=== PATIENT | male | born 1965 | race Caucasian/White ===

== ENCOUNTER 2016-06-16 13:19 | Emergency (ER) | payer MEDICARE ==
[~2016-06-16] VITALS: Ht 172.7 cm; Wt 66.8 kg
[~2016-06-16 13:19] MED LIST: ASPI325T PO; ZANT150T2 PO
[2016-06-16 13:29] VITALS: BP 103/76; PULSE 88; RESP 16; TEMP 98; O2SAT 100
[2016-06-16] MEDS ORDERED: SODIUM CHLOR 0.9% 1000 ML INJ 1,000 ML IV SCH (13:49)
[2016-06-16] MEDS ORDERED: GABA600T PO (13:51)
[2016-06-16] MEDS ORDERED: ESCI20TA PO (13:51)
[2016-06-16] MEDS ORDERED: QUET1TAB9 PO (13:51)
[2016-06-16] MEDS ORDERED: BUSP30TA PO (13:51)
[2016-06-16] MEDS ORDERED: TRAZ150T75 PO (13:51)
[2016-06-16] MEDS ORDERED: ONDANSETRON HCL 4 MG/2 ML VIAL IVP ONE (14:00)
[2016-06-16] MEDS ORDERED: SODIUM CHLORIDE 0.9% FLUSH 10 ML FLUSH IV FLUSH PRN (14:00)
[2016-06-16 14:11] VITALS: O2SAT 97
[2016-06-16 14:11] LABS: AUTOMATED NEUTROPHIL # 5.4 TH/MM3 (1.8-7.7); BASOPHIL # 0.1 TH/MM3 (0-0.2); BASOPHIL % 1.4 % (0.0-2.0); EOSINOPHIL # 0.1 TH/MM3 (0-0.4); EOSINOPHIL % 1.2 % (0.0-4.0); HEMO FLAGS DIFF FINAL; LYMPH % 26.2 % (9.0-44.0); LYMPHOCYTE # 2.2 TH/MM3 (1.0-4.8); MEAN CELL VOLUME 93.2 FL (80.0-100.0); MEAN CORPUSCULAR HEMOGLOBIN 30.1 PG (27.0-34.0); MEAN CORPUSCULAR HGB CONC 32.3 % (32.0-36.0); MONO % 5.8 % (0.0-8.0); NEUT % 65.4 % (16.0-70.0); PLATELET COUNT 318 TH/MM3 (150-450); RED BLOOD COUNT 5.15 MIL/MM3 (4.50-5.90); RED CELL DISTRIBUTION WIDTH 13.3 % (11.6-17.2); WHITE BLOOD COUNT 8.3 TH/MM3 (4.0-11.0)
[2016-06-16] MEDS ORDERED: DIATRIZOATE MEGLUM/DIATRIZOATE SOD 9 ML CUP ONE (14:13)
[2016-06-16 14:24] LABS: CHLORIDE 104 MEQ/L (98-107); POTASSIUM 4.9 MEQ/L (3.5-5.1); SODIUM (NA) 138 MEQ/L (136-145)
[2016-06-16 14:28] LABS: ANION GAP 7 MEQ/L (5-15); BICARBONATE 27.1 MEQ/L (21.0-32.0); BLOOD UREA NITROGEN 11 MG/DL (7-18)
[2016-06-16 14:30] LABS: ALT (GPT) 30 U/L (12-78); AST (GOT) 38 U/L (15-37)
[2016-06-16 14:31] LABS: GLOMERULAR FILTRATION RATE 84 ML/MIN (>89)
[2016-06-16 14:32] LABS: APTT (PATIENT) 29.1 SEC (24.3-30.1); PROTHROMBIN TIME - PATIENT 10.6 SEC (9.8-11.6); TOTAL BILIRUBIN ADULT 0.4 MG/DL (0.2-1.0)
[2016-06-16 14:33] LABS: ALKALINE PHOSPHATASE 79 U/L (45-117)
[2016-06-16 14:36] LABS: INDIRECT BILIRUBIN 0.3 MG/DL (0.0-0.8)
[2016-06-16 14:47] LABS: BLOOD, URINE NEG (NEG); GLUCOSE,URINE NEG (NEG); KETONE, URINE NEG (NEG); NITRITE,URINE NEG (NEG); PH, URINE 6.5 (5.0-8.5)
[2016-06-16 14:53] LABS: METHOD OF COLLECTION CLEAN CATCH; RBC, URINE 0-3 /hpf (0-3); URINE COLOR YELLOW (YELLW/STRAW)
[2016-06-16 14:54] LABS: COMMENT (UR) CULT NOT INDICATED; CULTURE IF INDICATED CULT NOT INDICATED; SQUAMOUS EPITHELIAL CELL URINE 0-5 /hpf (0-5)
[2016-06-16] MEDS ORDERED: IOHEXOL 350 MG/ML 10 ML VIAL (for RAD DIAG) IV ONE (16:46)
[2016-06-16 17:13] VITALS: BP 134/86; PULSE 53; RESP 18; O2SAT 100
--- NOTE | 2016-06-16 17:22 | RADHPO ---
EXAM DATE/TIME: 06/16/2016 15:51 [facility] COMPARISON: No previous studies available for comparison. INDICATIONS : Constipation and increasing abdominal pain. IV CONTRAST: 90 cc Omnipaque 350 (iohexol) IV ORAL CONTRAST: Prescribed oral contrast ingested. RADIATION DOSE: 8.78 CTDIvol (mGy) MEDICAL HISTORY : None SURGICAL HISTORY : Inguinal hernia repair. ENCOUNTER: Initial ACUITY: 1 month PAIN SCALE: 7/10 LOCATION: Bilateral abdomen TECHNIQUE: Volumetric scanning of the abdomen and pelvis was performed. Using automated exposure control and ad justment of the mA and/or kV according to patient size, radiation dose was kept as low as reasonably achievable to obtain optimal diagnostic quality images. FINDINGS: There are small bilateral pleural effusions. Mild fatty liver with probable tiny cysts present. There is a small cyst posterior aspect of the sple en. Adrenals, kidneys and pancreas demonstrate no acute findings. No calcified gallstones. There is no bowel obstruction. No free air or free fluid. The bladder is distended and there is a left-sided posterior bladder diverticulum measuring about 5.8 x 2.6 cm. The prostate gland is enlarged. CONCLUSION: 1. Enlarged prostate with distended bladder a left-sided bladder diverticulum and similar to December 2014. 2. Mild fatty liver. 3. Small bilateral pleural effusions. Small pericardial effusion. Cooper Fox MD on June 16, 2016 at 17:16 Board Certified Radiologist. This report was verified electronically.
[2016-06-16] MEDS ORDERED: TAMS5CAP PO (19:06)
--- NOTE | 2016-06-16 19:06 | PD ---
HPI Chief Complaint: GI Complaint Time Seen by Provider: 13:44 Travel History International Travel<30 days: No Contact w/Intl Traveler<30days: No Traveled to known affect area: No History of Present Illness HPI Patient is a 50-year-old male who comes in complaining of abdominal pain. He says he has been constipated for the past 3 weeks. He has tried several over- the-counter laxatives without much relief. He says he last moved his bowels 3 days ago, but it was a small bowel movement. He's had some nausea, but no vomiting. He denies fever or chills. He says he has not been very hungry lately. PFSH Past Medical History Autoimmune Disease: No Blood Disorders: No Bipolar Disorder: Yes Anxiety: Yes Depression: Yes Heart Rhythm Problems: No High Cholesterol: No Chemotherapy: No Chest Pain: No Congestive Heart Failure: No Cerebrovascular Accident: Yes (2000) Diminished Hearing: Yes (both ears especially left) Endocrine: No Gastrointestinal Disorders: Yes GERD: Yes Genitourinary: Yes (NEW HESITENCY) Headaches: Yes Hypertension: No Immune Disorder: No Implanted Vascular Access Dvce: No Musculoskeletal: Yes (OLD BILATERAL ROTATOR CUFF INJURY) Neurologic: Yes Psychiatric: Yes (Inpatient, outpatient, psychotropic medications, and diagnosis) Reproductive: No Respiratory: Yes Immunizations Current: Yes Pancreatitis: Yes Radiation Therapy: No Seizures: Yes Past Surgical History Abdominal Surgery: Yes (RIGHT HERNIA REPAIR AUGUST 2013) Body Medical Devices: MESH IN GROIN FROM SURGERY Pacemaker: No Other Surgery: Yes (RIGHT GROIN HERNIA REPAIR) Social History Alcohol Use: Yes (RUM EVERY DAY ) Tobacco Use: Yes (1 PPD.) Substance Use: Yes (ALCOHOL) Allergies-Medications (Allergen,Severity, Reaction): Coded Allergies: Coconut (Verified Allergy, Severe, ANAPHALAXIS, 06/16/16) Lortab (Verified Adverse Reaction, Mild, Nausea/Vomiting, 06/16/16) Reported Meds & Prescriptions Reported Meds & Active Scripts Active Reported Quetiapine (Quetiapine Fumarate) 200 Mg Tab 200 Mg PO HS Escitalopram (Escitalopram Oxalate) 20 Mg Tab 30 Mg PO HS Buspirone (Buspirone HCl) 30 Mg Tab 20 Mg PO TID Gabapentin 600 Mg Tab 600 Mg PO QID Trazodone (Trazodone HCl) 150 Mg Tab 150 Mg PO HS Review of Systems Except as stated in HPI: all other systems reviewed are Neg General / Constitutional: No: Fever, Chills HENT: No: Headaches, Lightheadedness Cardiovascular: No: Chest Pain or Discomfort Respiratory: No: Shortness of Breath Gastrointestinal: Positive: Nausea, Abdominal Pain, Constipation, No: Vomiting , Diarrhea Genitourinary: Positive: Decreased Urinary Output Skin: No Rash, No Change in Pigmentation Neurologic: No: Weakness, Dizziness Physical Exam Narrative GENERAL: Awake and alert, in no acute distress. SKIN: Focused skin assessment warm/dry. HEAD: Atraumatic. Normocephalic. EYES: Pupils equal and round. No scleral icterus. ENT: Mucous membranes pink and moist. NECK: Trachea midline. No JVD. CARDIOVASCULAR: Regular rate and rhythm. No murmur appreciated. RESPIRATORY: No accessory muscle use. Clear to auscultation. Breath sounds equal bilaterally. GASTROINTESTINAL: Diffusely tender to palpation, the worst over the suprapubic area. Distention over the bladder. No rebound or guarding. MUSCULOSKELETAL: No obvious deformities. No clubbing. No cyanosis. No edema. NEUROLOGICAL: Awake and alert. No obvious cranial nerve deficits. Motor grossly within normal limits. Normal speech. PSYCHIATRIC: Appropriate mood and affect; insight and judgment normal. Data Data Last Documented VS Vital Signs Date Time Temp Pulse Resp B/P Pulse Ox O2 Delivery O2 Flow Rate FiO2 06/16/16 17:13 53 18 134/86 100 06/16/16 14:11 Room Air 06/16/16 13:29 98.0 Orders Basic Metabolic Panel (Bmp) (06/16/16 13:49) Complete Blood Count With Diff (06/16/16 13:49) Lipase (06/16/16 13:49) Lactic Acid (06/16/16 13:49) Prothrombin Time / Inr (Pt) (06/16/16 13:49) Act Partial Throm Time (Ptt) (06/16/16 13:49) Urinalysis - C+S If Indicated (06/16/16 13:49) Ua Includes Microscopic (06/16/16 13:49) Ct Abd/Pel W Iv Contrast(Rout) (06/16/16 13:49) Iv Access Insert/Monitor (06/16/16 13:49) Ecg Monitoring (06/16/16 13:49) Oximetry (06/16/16 13:49) Ondansetron Inj (Zofran Inj) (06/16/16 14:00) Sodium Chlor 0.9% 1000 Ml Inj (Ns 1000 M (06/16/16 13:49) Sodium Chloride 0.9% Flush (Ns Flush) (06/16/16 14:00) Hepatic Functional Panel (06/16/16 13:49) Oral Contrast - Adult (06/16/16 14:04) Diatrizoate Liq ( Gastrojanice Liq) (06/16/16 14:13) Iohexol 350 Inj (Omnipaque 350 Inj) (06/16/16 16:46) Urinary Catheter Insert/Apply (06/16/16 17:45) Labs Laboratory Tests Test 06/16/16 06/16/16 14:02 14:36 White Blood Count 8.3 TH/MM3 Red Blood Count 5.15 MIL/MM3 Hemoglobin 15.5 GM/DL Hematocrit 48.0 % Mean Corpuscular Volume 93.2 FL Mean Corpuscular Hemoglobin 30.1 PG Mean Corpuscular Hemoglobin 32.3 % Concent Red Cell Distribution Width 13.3 % Platelet Count 318 TH/MM3 Mean Platelet Volume 7.6 FL Neutrophils (%) (Auto) 65.4 % Lymphocytes (%) (Auto) 26.2 % Monocytes (%) (Auto) 5.8 % Eosinophils (%) (Auto) 1.2 % Basophils (%) (Auto) 1.4 % Neutrophils # (Auto) 5.4 TH/MM3 Lymphocytes # (Auto) 2.2 TH/MM3 Monocytes # (Auto) 0.5 TH/MM3 Eosinophils # (Auto) 0.1 TH/MM3 Basophils # (Auto) 0.1 TH/MM3 CBC Comment DIFF FINAL Differential Comment Prothrombin Time 10.6 SEC Prothromb Time International 1.0 RATIO Ratio Activated Partial 29.1 SEC Thromboplast Time Sodium Level 138 MEQ/L Potassium Level 4.9 MEQ/L Chloride Level 104 MEQ/L Carbon Dioxide Level 27.1 MEQ/L Anion Gap 7 MEQ/L Blood Urea Nitrogen 11 MG/DL Creatinine 0.95 MG/DL Estimat Glomerular Filtration 84 ML/MIN Rate Random Glucose 93 MG/DL Lactic Acid Level 1.5 mmol/L Calcium Level 9.2 MG/DL Total Bilirubin 0.4 MG/DL Direct Bilirubin LESS THAN 0.1 MG/DL Indirect Bilirubin 0.3 MG/DL Aspartate Amino Transf 38 U/L (AST/SGOT) Alanine Aminotransferase 30 U/L (ALT/SGPT) Alkaline Phosphatase 79 U/L Total Protein 7.3 GM/DL Albumin 3.5 GM/DL Lipase 117 U/L Urine Collection Type CLEAN CATCH Urine Color YELLOW Urine Turbidity CLEAR Urine pH 6.5 Urine Specific [place] 1.010 Urine Protein NEG mg/dL Urine Glucose (UA) NEG mg/dL Urine Ketones NEG mg/dL Urine Occult Blood NEG Urine Nitrite NEG Urine Bilirubin NEG Urine Leukocyte Esterase NEG Urine RBC 0-3 /hpf Urine Squamous Epithelial 0-5 /hpf Cells Microscopic Urinalysis Comment CULT NOT INDICATED Urine Collection Time 14:36 MDM Medical Decision Making Medical Screen Exam Complete: Yes Emergency Medical Condition: Yes Medical Record Reviewed: Yes Differential Diagnosis Obstruction versus colitis versus urinary retention versus diverticulitis Narrative Course Patient is a 50-year-old male who comes in complaining of abdominal pain and constipation. Exam shows diffuse tenderness, worse over the suprapubic area with bladder distention. IV established, labs sent. Labs show no acute abnormalities. Creatinine is within normal limits. CT abdomen and pelvis performed shows enlarged bladder as well as an enlarged prostate. No acute issues with the colon. Patient given Zofran for nausea. Xiao catheter inserted with a liter of urine output. Patient reports feeling better after this. We'll discharge with Xiao in place and prescription for Flomax. Patient advised follow-up with urology. Advised to return to the ED as needed for any worsening symptoms. Diagnosis Primary Impression: Urinary retention Referrals: Aman Farr MD call for appointment Patient Instructions: Benign Prostatic Hypertrophy (ED), General Instructions, Urinary Retention in Men (ED) Additional Instructions: Follow up with urology, Dr. Farr: [address] [address] [phone]. Take the Flomax for your enlarged prostate. Return to the ED as needed for any worsening symptoms. Scripts Tamsulosin (Flomax)0.4 Mg Cap0.4 Mg PO HS #30 CAP Ref 0 Prov:Bushra Riley MD 06/16/16 Disposition: 01 DISCHARGE HOME Condition: Stable Bushra Riley MD June 16, 2016 19:06
[2016-06-16 19:25] VITALS: BP 131/79; TEMP 97.4
[2016-06-21] MEDS ORDERED: LEXA20TA PO (08:27)
[2016-06-21] MEDS ORDERED: ZANT150T2 PO (08:27)
[2016-07-16] MEDS ORDERED: TRAZ50TA12 PO (15:02)
== END 2016-06-16 19:31 | disposition home or self-care (01) ==
LOC: PHED 13:19
DX: R33.9 Retention of urine, unspecified (principal); R11.0 Nausea; F17.210 Nicotine dependence, cigarettes, uncomplicated
CPT/HCPCS: 51703; 74177; 80048; 80076; 81001; 83605; 83690; 85025; 85610; 85730; 96361; 96374; 99284; J2405; J7030; Q9963; Q9967

== ENCOUNTER → 2016-07-24 | Day surgery (SDC) | payer MEDICARE ==
[~2016-07-24] VITALS: Ht 172.7 cm; Wt 69.7 kg
[~2016-07-24] MED LIST changes: +*morphine SULFATE 8 MG/ML PERIprocedure ONLY ONE; +AMPICILLIN 1 GM/NS 100 ML IV SCH; -ASPI325T PO; +BELLADONNA ALKALOIDS/OPIUM 60 MG SUPP RECTAL ONE; +BUSP30TA PO; +CHLORHEXIDINE GLUCONATE 2 % 1 PACK (2 CLOTHS) TOPICAL PRN; +CIPR-9 PO; +DO NOT ADM ANY ANTICOAGULANT DRUGS PRN; +FAMOTIDINE 20 MG/2 ML VIAL ONE; +GABA600T PO; +GENTAMICIN INJ 240 MG in SODIUM CHLORIDE 0.9% INJ 100 ML IV SCH; +HYDROmorphone HCL PF 2 MG/ML VIAL IV PUSH PRN; +INSULIN HUMAN REGULAR 1,000 UNITS/10 ML VIAL SQ PRN; +LACTATED RINGER'S 1000 ML IV PRN; +LAMO25TA PO; +LEXA20TA PO; +METOPROLOL TARTRATE 25 MG TAB PO PRN; +MIDAZOLAM HCL 2 MG/2 ML VIAL ONE; +NEOSTIGMINE METHYLSULFATE 10 MG/10 ML VIAL IV PUSH ONE; +NORC5TAB PO; +ONDANSETRON HCL 4 MG/2 ML VIAL IV PUSH ONE; +ONDANSETRON HCL 4 MG/2 ML VIAL IV PUSH PRN; +POVIDONE IODINE 5% (ANTISEPSIS KIT) 4 APPLICATIONS EACH NARE PRN; +PROPOFOL 200 MG/20 ML AMP IV ONE; +QUET1TAB10 PO; +QUET1TAB8 PO; +QUET1TAB9 PO; +SODIUM CHLORID 0.9% 500 ML IV PRN; +TAMS5CAP PO; +TRAM50TA PO; +TRAZ50TA12 PO; +fentaNYL CITRATE 250 MCG/5 ML AMP ONE; +traMADol HCL 50 MG TAB PO PRN
[2016-07-24 08:09] VITALS: BP 107/73; PULSE 89; RESP 18; TEMP 97.7; O2SAT 99
[2016-07-24 08:25] LABS: AUTOMATED NEUTROPHIL # 7.2 TH/MM3 (1.8-7.7); BASOPHIL % 0.3 % (0.0-2.0); EOSINOPHIL # 0.2 TH/MM3 (0-0.4); EOSINOPHIL % 1.9 % (0.0-4.0); HEMATOCRIT 41.1 % (39.0-51.0); HEMO FLAGS DIFF FINAL; LYMPH % 21.9 % (9.0-44.0); LYMPHOCYTE # 2.3 TH/MM3 (1.0-4.8); MEAN CELL VOLUME 91.7 FL (80.0-100.0); MEAN CORPUSCULAR HEMOGLOBIN 31.7 PG (27.0-34.0); MEAN CORPUSCULAR HGB CONC 34.6 % (32.0-36.0); MONO % 8.7 % (0.0-8.0); NEUT % 67.2 % (16.0-70.0); PLATELET COUNT 348 TH/MM3 (150-450); RED BLOOD COUNT 4.49 MIL/MM3 (4.50-5.90); RED CELL DISTRIBUTION WIDTH 13.8 % (11.6-17.2); WHITE BLOOD COUNT 10.7 TH/MM3 (4.0-11.0)
[2016-07-24 08:34] LABS: APTT (PATIENT) 29.6 SEC (24.3-30.1); INTERNATIONAL NORMALIZED RATIO 0.9 RATIO; PROTHROMBIN TIME - PATIENT 10.4 SEC (9.8-11.6)
[2016-07-24 08:42] LABS: BICARBONATE 28.8 MEQ/L (21.0-32.0); POTASSIUM 3.3 MEQ/L (3.5-5.1)
--- NOTE | 2016-07-24 10:01 | PD.OP ---
Operative Report Date of Surgery: Jul 24, 2016 Preoperative Diagnosis: BPH with obstruction; urinary retention Postoperative Diagnosis: Same Procedure: Cystoscopy with transurethral incision of the bladder neck followed by transurethral resection of the prostate. Anesthesia: GETA Surgeon: Charli Rollins Calciner Feeder(s): None Resident Surgeon: None Operation and Findings: 50 year-old male presents with history of BPH with obstruction and urinary retention with indwelling Xiao catheter. Decision made to bring the patient to the operating room undergo transurethral resection of the prostate. Risk and benefits were discussed preoperatively and the patient was willing to proceed. Patient is brought to operative room identify myself as Brendon Elbert. His placement dorsal lithotomy position, prepped and draped in usual sterile fashion, received preprocedure antibiotics and general endotracheal tube anesthesia was administered. 24 [place] obturator sheath with the [employer] resectoscope was passed into the bladder without difficulty. Hernández cystoscopy demonstrated some catheter cystitis but no bladder tumors were identified. The prostate was visualized and there appeared to be a short prostatic urethra with minimal coaptation of the prosthetic lobes. There was a high riding bladder neck. Initially using the hot knife, a bladder neck incision was made. Once completed then the loupe resectoscope was then used to perform the transurethral resection of the prostate. Only a small amount of chips were retrieved. Hemostasis was obtained. Using the electric evacuator the small chips were removed. A 24 [place] two-way Xiao catheter was inserted to completion of the procedure and he tolerated the procedure well. He was awoken and transferred to occur in stable condition. Charli Rollins DO Jul 24, 2016 10:01
--- NOTE | 2016-07-24 10:30 | EKG ---
Date Performed: 07/24/2016 Time Performed: 08:05:02 PTAGE: 50 years EKG: Sinus rhythm BORDERLINE RIGHT AXIS DEVIATION BORDERLINE ECG NO SIGNIFICANT CHANGE FROM PRIOR ELECTROCARDIOGRAM. PREVIOUS TRACING : 07/14/2015 17.07 DOCTOR: Jordan Lau Interpretating Date/Time 07/24/2016 10:28:20
[2016-07-24 11:58] VITALS: BP 105/75; PULSE 87; RESP 18; TEMP 97.7; O2SAT 95
== END | disposition home or self-care (01) ==
LOC: HSDC 07:31
PROVIDERS: ATTEND Urology
DX: N40.1 Benign prostatic hyperplasia with lower urinary tract symptoms (principal); R33.9 Retention of urine, unspecified; R56.9 Unspecified convulsions; F17.200 Nicotine dependence, unspecified, uncomplicated; Z01.810 Encounter for preprocedural cardiovascular examination; Z01.818 Encounter for other preprocedural examination
CPT/HCPCS: 00914; 52601; 80048; 85025; 85610; 85730; 88305; 93005; J0290; J1170; J1580; J2250; J2270; J2405; J2710; J3010

== ENCOUNTER 2016-07-28 17:22 | Emergency (ER) | payer MEDICARE ==
[~2016-07-28] VITALS: Ht 175.3 cm; Wt 72.0 kg
[~2016-07-28 17:22] MED LIST changes: -*morphine SULFATE 8 MG/ML PERIprocedure ONLY ONE; -AMPICILLIN 1 GM/NS 100 ML IV SCH; -BELLADONNA ALKALOIDS/OPIUM 60 MG SUPP RECTAL ONE; -CHLORHEXIDINE GLUCONATE 2 % 1 PACK (2 CLOTHS) TOPICAL PRN; -CIPR-9 PO; -DO NOT ADM ANY ANTICOAGULANT DRUGS PRN; -FAMOTIDINE 20 MG/2 ML VIAL ONE; -GENTAMICIN INJ 240 MG in SODIUM CHLORIDE 0.9% INJ 100 ML IV SCH; -HYDROmorphone HCL PF 2 MG/ML VIAL IV PUSH PRN; -INSULIN HUMAN REGULAR 1,000 UNITS/10 ML VIAL SQ PRN; -LACTATED RINGER'S 1000 ML IV PRN; -LAMO25TA PO; -LEXA20TA PO; -METOPROLOL TARTRATE 25 MG TAB PO PRN; -MIDAZOLAM HCL 2 MG/2 ML VIAL ONE; -NEOSTIGMINE METHYLSULFATE 10 MG/10 ML VIAL IV PUSH ONE; -NORC5TAB PO; -ONDANSETRON HCL 4 MG/2 ML VIAL IV PUSH ONE; -ONDANSETRON HCL 4 MG/2 ML VIAL IV PUSH PRN; -POVIDONE IODINE 5% (ANTISEPSIS KIT) 4 APPLICATIONS EACH NARE PRN; -PROPOFOL 200 MG/20 ML AMP IV ONE; -QUET1TAB10 PO; -QUET1TAB8 PO; -SODIUM CHLORID 0.9% 500 ML IV PRN; -TRAM50TA PO; -fentaNYL CITRATE 250 MCG/5 ML AMP ONE; -traMADol HCL 50 MG TAB PO PRN
[2016-07-28 17:28] VITALS: BP 121/84; PULSE 96; RESP 16; TEMP 98.5; O2SAT 98
[2016-07-28] MEDS ORDERED: MORPHINE SULFATE 4 MG/ML INJ IV PUSH ONE (17:45)
[2016-07-28] MEDS ORDERED: ONDANSETRON HCL 4 MG/2 ML VIAL IV PUSH ONE (17:45)
[2016-07-28] MEDS ORDERED: SODIUM CHLOR 0.9% 1000 ML INJ 1,000 ML IV ONE (17:45)
[2016-07-28] MEDS ORDERED: TRAM50TA PO (17:50)
[2016-07-28] MEDS ORDERED: LAMO25TA PO (17:50)
[2016-07-28] MEDS ORDERED: QUET1TAB10 PO (17:50)
[2016-07-28] MEDS ORDERED: QUET1TAB8 PO (17:50)
[2016-07-28] MEDS ORDERED: CIPR-9 PO (18:01)
[2016-07-28] MEDS ORDERED: NORC5TAB PO (18:01)
--- NOTE | 2016-07-28 18:02 | PD ---
HPI Chief Complaint: Abdominal Pain Time Seen by Provider: 17:31 Travel History International Travel<30 days: No Contact w/Intl Traveler<30days: No Traveled to known affect area: No History of Present Illness HPI The patient is a 50-year-old male who presents emergency department via EMS for lower abdominal discomfort. The patient recently underwent cystoscopy by his urologist, Dr. Jj Rollins, for possible large prostate. The procedure was performed on July 24, 2016 and he was supposed to follow-up on July 27, 2016 for urine child, however, patient was unable to make his appointment. He now complains of spasms and discomfort in the lower pelvic area. He does note occasional discomfort with the passage of urine, but continues to make clear yellow urine. He denies any current hematuria. He denies any fever, chills, sweats, nausea, or vomiting. Symptoms are moderate, exacerbated after recent cystoscopy, and there are no current alleviating factors. PFSH Past Medical History Autoimmune Disease: No Blood Disorders: No Bipolar Disorder: Yes Anxiety: Yes Depression: Yes Heart Rhythm Problems: No High Cholesterol: No Chemotherapy: No Chest Pain: No Congestive Heart Failure: No Cerebrovascular Accident: Yes (2000) Diminished Hearing: Yes (both ears especially left) Endocrine: No Gastrointestinal Disorders: Yes GERD: Yes Genitourinary: Yes (NEW HESITENCY) Headaches: Yes Hypertension: No Immune Disorder: No Implanted Vascular Access Dvce: No Musculoskeletal: Yes (OLD BILATERAL ROTATOR CUFF INJURY) Neurologic: Yes Psychiatric: Yes (Inpatient, outpatient, psychotropic medications, and diagnosis) Reproductive: No Respiratory: Yes Immunizations Current: Yes Pancreatitis: Yes Radiation Therapy: No Seizures: Yes Past Surgical History Abdominal Surgery: Yes (RIGHT HERNIA REPAIR AUGUST 2013) Body Medical Devices: MESH IN GROIN FROM SURGERY Pacemaker: No Prostatectomy: Yes Other Surgery: Yes (RIGHT GROIN HERNIA REPAIR) Social History Alcohol Use: No (quit ) Tobacco Use: Yes (1 PPD.) Substance Use: No (ALCOHOL) Allergies-Medications (Allergen,Severity, Reaction): Coded Allergies: Coconut (Verified Allergy, Severe, ANAPHALAXIS, 07/28/16) Lortab (Verified Adverse Reaction, Mild, Nausea/Vomiting, 07/28/16) *MDRO Multi-Drug Resistant Organism (Verified Adverse Reaction, Unknown, MRSA, 07/28/16) MRSA (arm wound) - 07/21/2005 Reported Meds & Prescriptions Reported Meds & Active Scripts Active Lebec (Hydrocodone-Acetaminophen) 5-325 mg Tab 1 Tab PO Q6H PRN Cipro (Ciprofloxacin HCl) 500 Mg Tab 500 Mg PO BID 3 Days Reported Lamotrigine 25 Mg Tab 25 Mg PO DAILY Tramadol (Tramadol HCl) 50 Mg Tab 50 Mg PO Q6H PRN Quetiapine (Quetiapine Fumarate) 100 Mg Tab 100 Mg PO DAILY Quetiapine (Quetiapine Fumarate) 300 Mg Tab 300 Mg PO HS Trazodone (Trazodone HCl) 50 Mg Tab 50 Mg PO HS patient take 3 tablets at night. Zantac (Ranitidine HCl) 150 Mg Tab 150 Mg PO DAILY Buspirone (Buspirone HCl) 30 Mg Tab 20 Mg PO TID Gabapentin 600 Mg Tab 600 Mg PO QID Review of Systems Except as stated in HPI: all other systems reviewed are Neg General / Constitutional: No: Fever Cardiovascular: No: Chest Pain or Discomfort Respiratory: No: Shortness of Breath Gastrointestinal: No: Nausea, Vomiting, Abdominal Pain Genitourinary: Positive: Pelvic Pain, Other (as noted in the history of present illness) Skin: No Rash Physical Exam Narrative GENERAL: Awake, alert, pleasant 50-year-old male who appears his stated age and is in no acute respiratory distress. SKIN: Focused skin assessment warm/dry. HEAD: Atraumatic. Normocephalic. EYES: Pupils equal and round. No scleral icterus. No injection or drainage. ENT: No nasal bleeding or discharge. Mucous membranes pink and moist. NECK: Trachea midline. No JVD. CARDIOVASCULAR: Regular rate and rhythm. No murmur appreciated. RESPIRATORY: No accessory muscle use. Clear to auscultation. Breath sounds equal bilaterally. GASTROINTESTINAL: Abdomen soft, minimal suprapubic tenderness, no rebound tenderness. No obvious distention of the suprapubic region. Genitourinary: Circumcised phallus with Xiao catheter in place. Xiao catheter is attached leg bag with clear yellow urine. No tenderness over the testicles. MUSCULOSKELETAL: No obvious deformities. No clubbing. No cyanosis. No edema. NEUROLOGICAL: Awake and alert. No obvious cranial nerve deficits. Motor grossly within normal limits. Normal speech. PSYCHIATRIC: Appropriate mood and affect; insight and judgment normal. Data Data Last Documented VS Vital Signs Date Time Temp Pulse Resp B/P Pulse Ox O2 Delivery O2 Flow Rate FiO2 07/28/16 17:55 18 07/28/16 17:28 98.5 96 121/84 98 Orders Urinalysis - C+S If Indicated (07/28/16 17:41) Comprehensive Metabolic Panel (07/28/16 17:41) Complete Blood Count With Diff (07/28/16 17:41) Morphine Inj (Morphine Inj) (07/28/16 17:45) Ondansetron Inj (Zofran Inj) (07/28/16 17:45) Sodium Chlor 0.9% 1000 Ml Inj (Ns 1000 M (07/28/16 17:45) Urine Culture (07/28/16 17:54) Labs Laboratory Tests Test 07/28/16 07/28/16 14:50 17:54 White Blood Count 8.5 TH/MM3 Red Blood Count 4.24 MIL/MM3 Hemoglobin 12.9 GM/DL Hematocrit 39.6 % Mean Corpuscular Volume 93.4 FL Mean Corpuscular Hemoglobin 30.4 PG Mean Corpuscular Hemoglobin 32.6 % Concent Red Cell Distribution Width 14.0 % Platelet Count 332 TH/MM3 Mean Platelet Volume 7.3 FL Neutrophils (%) (Auto) 60.9 % Lymphocytes (%) (Auto) 26.4 % Monocytes (%) (Auto) 9.8 % Eosinophils (%) (Auto) 2.4 % Basophils (%) (Auto) 0.5 % Neutrophils # (Auto) 5.2 TH/MM3 Lymphocytes # (Auto) 2.2 TH/MM3 Monocytes # (Auto) 0.8 TH/MM3 Eosinophils # (Auto) 0.2 TH/MM3 Basophils # (Auto) 0.0 TH/MM3 CBC Comment DIFF FINAL Differential Comment Sodium Level 142 MEQ/L Potassium Level 3.4 MEQ/L Chloride Level 110 MEQ/L Carbon Dioxide Level 25.0 MEQ/L Anion Gap 7 MEQ/L Blood Urea Nitrogen 6 MG/DL Creatinine 0.83 MG/DL Estimat Glomerular Filtration 98 ML/MIN Rate Random Glucose 91 MG/DL Calcium Level 7.7 MG/DL Total Bilirubin 0.2 MG/DL Aspartate Amino Transf 13 U/L (AST/SGOT) Alanine Aminotransferase 14 U/L (ALT/SGPT) Alkaline Phosphatase 77 U/L Total Protein 5.7 GM/DL Albumin 2.6 GM/DL Urine Color YELLOW Urine Turbidity CLEAR Urine pH 7.5 Urine Specific [place] 1.010 Urine Protein 30 mg/dL Urine Glucose (UA) NEG mg/dL Urine Ketones NEG mg/dL Urine Occult Blood MOD Urine Nitrite NEG Urine Bilirubin NEG Urine Urobilinogen LESS THAN 2.0 MG/DL Urine Leukocyte Esterase SMALL Urine RBC 38 /hpf Urine WBC 10 /hpf Microscopic Urinalysis Comment CATH-CULTURE IND MDM Medical Decision Making Medical Screen Exam Complete: Yes Emergency Medical Condition: Yes Medical Record Reviewed: Yes Interpretation(s) Laboratory Tests Test 07/28/16 07/28/16 14:50 17:54 White Blood Count 8.5 TH/MM3 Red Blood Count 4.24 MIL/MM3 Hemoglobin 12.9 GM/DL Hematocrit 39.6 % Mean Corpuscular Volume 93.4 FL Mean Corpuscular Hemoglobin 30.4 PG Mean Corpuscular Hemoglobin 32.6 % Concent Red Cell Distribution Width 14.0 % Platelet Count 332 TH/MM3 Mean Platelet Volume 7.3 FL Neutrophils (%) (Auto) 60.9 % Lymphocytes (%) (Auto) 26.4 % Monocytes (%) (Auto) 9.8 % Eosinophils (%) (Auto) 2.4 % Basophils (%) (Auto) 0.5 % Neutrophils # (Auto) 5.2 TH/MM3 Lymphocytes # (Auto) 2.2 TH/MM3 Monocytes # (Auto) 0.8 TH/MM3 Eosinophils # (Auto) 0.2 TH/MM3 Basophils # (Auto) 0.0 TH/MM3 CBC Comment DIFF FINAL Differential Comment Sodium Level 142 MEQ/L Potassium Level 3.4 MEQ/L Chloride Level 110 MEQ/L Carbon Dioxide Level 25.0 MEQ/L Anion Gap 7 MEQ/L Blood Urea Nitrogen 6 MG/DL Creatinine 0.83 MG/DL Estimat Glomerular Filtration 98 ML/MIN Rate Random Glucose 91 MG/DL Calcium Level 7.7 MG/DL Total Bilirubin 0.2 MG/DL Aspartate Amino Transf 13 U/L (AST/SGOT) Alanine Aminotransferase 14 U/L (ALT/SGPT) Alkaline Phosphatase 77 U/L Total Protein 5.7 GM/DL Albumin 2.6 GM/DL Urine Color YELLOW Urine Turbidity CLEAR Urine pH 7.5 Urine Specific [place] 1.010 Urine Protein 30 mg/dL Urine Glucose (UA) NEG mg/dL Urine Ketones NEG mg/dL Urine Occult Blood MOD Urine Nitrite NEG Urine Bilirubin NEG Urine Urobilinogen LESS THAN 2.0 MG/DL Urine Leukocyte Esterase SMALL Urine RBC 38 /hpf Urine WBC 10 /hpf Microscopic Urinalysis Comment CATH-CULTURE IND Differential Diagnosis Differential diagnosis includes bladder spasms, outlet obstruction, UTI, postoperative complication, acute renal failure, obstructive uropathy. Narrative Course IV was established, labs are drawn and sent, and the patient was placed on cardiac telemetry monitoring and continuous pulse oximetry monitoring. Bedside ultrasound was performed which reveals that the Xiao catheter is in place, there is no obvious distention of the bladder. I discussed the patient with Dr. Rollins, the patient's urologist, who recommended the patient follow-up on Saturday on an outpatient basis if laboratory evaluation/UA are negative for a voiding trial. He also recommends antibiotics for a few days and pain medication for the discomfort, but advises to avoid Ditropan. Labs reveal RBCs and WBCs, otherwise unremarkable. The patient we treated with Cipro and Lebec. He is advised to follow-up Saturday with Dr. Rollins. Diagnosis Primary Impression: Painful bladder spasm Additional Impression: UTI (urinary tract infection) Qualified Code: T83.511A - Urinary tract infection associated with indwelling urethral catheter, initial encounter Patient Instructions: General Instructions Additional Instructions: Follow-up with Dr. Rollins on Saturday. Medications as directed. Return if symptoms worsen or progress. Med/Other Pt SpecificInfo: Prescription(s) given Scripts Hydrocodone-Acetaminophen ([place])5-325 mg Tab1 Tab PO Q6H PRN (PAIN) #15 TAB Ref 0 Prov:Jarad Casarez MD 07/28/16 Ciprofloxacin (Cipro)500 Mg Thw913 Mg PO BID 3 Days Ref 0 Prov:Jarad Casarez MD 07/28/16 Disposition: 01 DISCHARGE HOME Condition: Stable Jarad Casarez MD Jul 28, 2016 18:01
[2016-07-28 18:15] LABS: AUTOMATED NEUTROPHIL # 5.2 TH/MM3 (1.8-7.7); BASOPHIL % 0.5 % (0.0-2.0); EOSINOPHIL # 0.2 TH/MM3 (0-0.4); EOSINOPHIL % 2.4 % (0.0-4.0); HEMATOCRIT 39.6 % (39.0-51.0); HEMO FLAGS DIFF FINAL; LYMPH % 26.4 % (9.0-44.0); LYMPHOCYTE # 2.2 TH/MM3 (1.0-4.8); MEAN CELL VOLUME 93.4 FL (80.0-100.0); MEAN CORPUSCULAR HEMOGLOBIN 30.4 PG (27.0-34.0); MEAN CORPUSCULAR HGB CONC 32.6 % (32.0-36.0); MONO % 9.8 % (0.0-8.0); NEUT % 60.9 % (16.0-70.0); PLATELET COUNT 332 TH/MM3 (150-450); RED BLOOD COUNT 4.24 MIL/MM3 (4.50-5.90); WHITE BLOOD COUNT 8.5 TH/MM3 (4.0-11.0)
[2016-07-28 18:16] LABS: BLOOD, URINE MOD (NEG); COMMENT (UR) CATH-CULTURE IND; CULTURE IF INDICATED CATH CULTURE IND; GLUCOSE,URINE NEG (NEG); KETONE, URINE NEG (NEG); NITRITE,URINE NEG (NEG); PH, URINE 7.5 (5.0-8.5); URINE COLOR YELLOW (YELLW/STRAW)
[2016-07-28 18:40] LABS: ALT (GPT) 14 U/L (12-78); ANION GAP 7 MEQ/L (5-15); AST (GOT) 13 U/L (15-37); BLOOD UREA NITROGEN 6 MG/DL (7-18); CHLORIDE 110 MEQ/L (98-107); GLOMERULAR FILTRATION RATE 98 ML/MIN (>89); POTASSIUM 3.4 MEQ/L (3.5-5.1); SODIUM (NA) 142 MEQ/L (136-145)
[2016-07-28 18:42] LABS: ALKALINE PHOSPHATASE 77 U/L (45-117); TOTAL BILIRUBIN ADULT 0.2 MG/DL (0.2-1.0)
== END 2016-07-28 19:08 | disposition home or self-care (01) ==
LOC: NEPE 17:22
DX: N32.89 Other specified disorders of bladder (principal); F17.210 Nicotine dependence, cigarettes, uncomplicated; F31.9 Bipolar disorder, unspecified; N39.0 Urinary tract infection, site not specified
CPT/HCPCS: 80053; 81001; 85025; 87086; 96374; 96375; 99284; J2270; J2405; J7030

== ENCOUNTER 2017-02-25 07:37 | Emergency (ER) | payer MEDICARE ==
[~2017-02-25] VITALS: Ht 175.3 cm; Wt 78.0 kg
[~2017-02-25 07:37] MED LIST changes: +CIPR-9 PO; +LAMO25TA PO; +NORC5TAB PO; +QUET1TAB10 PO; +QUET1TAB8 PO; -QUET1TAB9 PO; -TAMS5CAP PO; +TRAM50TA PO
[2017-02-25 07:41] VITALS: BP 135/58; PULSE 93; RESP 18; TEMP 98; O2SAT 100
[2017-02-25] MEDS ORDERED: TRAZ100T10 PO (07:51)
[2017-02-25 07:52] VITALS: BP 135/58; PULSE 93; RESP 18; TEMP 98; O2SAT 100
[2017-02-25] MEDS ORDERED: RESP: ALBUTEROL 2.5 MG/IPRATROPIUM 0.5 MG NEB (SCH) NEB ONE ×2 (08:30→10:45)
[2017-02-25] MEDS ORDERED: ONDANSETRON HCL 4 MG/2 ML VIAL IV PUSH ONE (08:30)
[2017-02-25] MEDS ORDERED: KETOROLAC TROMETHAMINE 30 MG/ML (IVP) VIAL IV PUSH ONE (08:30)
[2017-02-25] MEDS ORDERED: SODIUM CHLOR 0.9% 1000 ML INJ 1,000 ML IV ONE (08:30)
[2017-02-25 08:41] LABS: AUTOMATED NEUTROPHIL # 7.2 TH/MM3 (1.8-7.7); BASOPHIL # 0.4 TH/MM3 (0-0.2); BASOPHIL % 3.8 % (0.0-2.0); EOSINOPHIL # 0.1 TH/MM3 (0-0.4); EOSINOPHIL % 1.4 % (0.0-4.0); HEMATOCRIT 39.1 % (39.0-51.0); HEMOGLOBIN 12.8 GM/DL (13.0-17.0); LYMPH % 19.8 % (9.0-44.0); LYMPHOCYTE # 2.1 TH/MM3 (1.0-4.8); MEAN CELL VOLUME 90.7 FL (80.0-100.0); MEAN CORPUSCULAR HEMOGLOBIN 29.7 PG (27.0-34.0); MEAN CORPUSCULAR HGB CONC 32.8 % (32.0-36.0); MEAN PLATELET VOLUME 7.2 FL (7.0-11.0); MONOCYTE # 0.7 TH/MM3 (0-0.9); PLATELET COUNT 295 TH/MM3 (150-450); RED BLOOD COUNT 4.31 MIL/MM3 (4.50-5.90); WHITE BLOOD COUNT 10.5 TH/MM3 (4.0-11.0)
[2017-02-25 09:03] LABS: CHLORIDE 104 MEQ/L (98-107); SODIUM (NA) 139 MEQ/L (136-145)
[2017-02-25 09:07] LABS: ALBUMIN 2.7 GM/DL (3.4-5.0); BICARBONATE 30.1 MEQ/L (21.0-32.0); BLOOD UREA NITROGEN 13 MG/DL (7-18); CALCIUM 8.4 MG/DL (8.5-10.1); GLUCOSE,RANDOM 99 MG/DL (74-106)
[2017-02-25 09:10] LABS: ALT (GPT) 13 U/L (12-78); AST (GOT) 9 U/L (15-37); GLOMERULAR FILTRATION RATE 79 ML/MIN (>89)
[2017-02-25 09:12] LABS: TOTAL BILIRUBIN ADULT 0.3 MG/DL (0.2-1.0); TOTAL PROTEIN 6.5 GM/DL (6.4-8.2)
[2017-02-25 09:13] LABS: ALKALINE PHOSPHATASE 96 U/L (45-117)
--- NOTE | 2017-02-25 09:14 | RADRPT ---
EXAM DATE/TIME: 02/25/2017 08:36 [facility] COMPARISON: CT THORAX W/O CONTRAST, July 14, 2015, 17:24. CHEST PA & LAT, February 10, 2016, 7:46. INDICATIONS : Cough MEDICAL HISTORY : Chronic obstructive pulmonary disease. SURGICAL HISTORY : None. ENCOUNTER: Initial ACUITY: 1 week PAIN SCORE: 0/10 LOCATION: Bilateral chest FINDINGS: The cardiac and mediastinal contours are within normal limits. The exam demonstrates a questionable 1 .3 cm nodule in the lateral margin of the right midlung field. The lungs are otherwise clear. The visualized bony structures are grossly intact. There are known, old rib fractures on the right. CONCLUSION: Questionable 1.3 cm pulmonary nodule on the right. CT imaging of the thorax would be of benefit for f urther assessment. This was not seen on previous examination. Terry Wright MD on February 25, 2017 at 9:09 Board Certified Radiologist. This report was verified electronically.
[2017-02-25 09:15] LABS: TROPONIN I LESS THAN 0.02 NG/ML (0.02-0.05)
--- NOTE | 2017-02-25 09:43 | PD ---
HPI Chief Complaint: Cold / Flu Symptoms Time Seen by Provider: 07:56 Travel History International Travel<30 days: No Contact w/Intl Traveler<30days: No Traveled to known affect area: No History of Present Illness HPI Patient is a 51 year old male who comes in complaining of cough, cold, bodyaches. He says he has had flu like symptoms for the past 6 days. He has been taking Nyquil to control his symptoms without much relief. He says he had a fever 3 days ago. He last took any medication a few hours ago. He says he has pain all over and around his diaphragm from coughing. He has some mild SOB. He is a smoker. He denies nausea or vomiting. He complains of bilateral ear pain. Nothing seems to make his symptoms better or worse. PFSH Past Medical History Hx Anticoagulant Therapy: No Autoimmune Disease: No Blood Disorders: No Bipolar Disorder: Yes Anxiety: Yes Depression: Yes Heart Rhythm Problems: No High Cholesterol: No Chemotherapy: No Chest Pain: No Congestive Heart Failure: No Cerebrovascular Accident: Yes (2000) Diabetes: No Diminished Hearing: Yes (both ears especially left) Endocrine: No Gastrointestinal Disorders: Yes GERD: Yes Genitourinary: Yes (NEW HESITENCY) Headaches: Yes Hypertension: No Immune Disorder: No Implanted Vascular Access Dvce: No Musculoskeletal: Yes (OLD BILATERAL ROTATOR CUFF INJURY) Neurologic: Yes Psychiatric: Yes (Inpatient, outpatient, psychotropic medications, and diagnosis) Reproductive: No Respiratory: Yes Immunizations Current: Yes Pancreatitis: Yes Radiation Therapy: No Seizures: Yes Tetanus Vaccination: < 5 Years Past Surgical History Abdominal Surgery: Yes (RIGHT HERNIA REPAIR AUGUST 2013) Body Medical Devices: MESH IN GROIN FROM SURGERY Pacemaker: No Other Surgery: Yes (RIGHT GROIN HERNIA REPAIR) Social History Alcohol Use: No (quit ) Tobacco Use: Yes (1 PPD.) Substance Use: No (ALCOHOL) Allergies-Medications (Allergen,Severity, Reaction): Coded Allergies: coconut (Unverified Allergy, Severe, ANAPHALAXIS, 02/25/17) acetaminophen (Unverified Adverse Reaction, Mild, Nausea/Vomiting, 02/25/17 ) hydrocodone (Unverified Adverse Reaction, Mild, Nausea/Vomiting, 02/25/17) *MDRO Multi-Drug Resistant Organism (Verified Adverse Reaction, Unknown, MRSA, 02/25/17) MRSA (arm wound) - 07/21/2005 Reported Meds & Prescriptions Reported Meds & Active Scripts Active Reported Trazodone (Trazodone HCl) 100 Mg Tablet 100 Mg PO HS Lamotrigine 25 Mg Tab 25 Mg PO DAILY Quetiapine (Quetiapine Fumarate) 100 Mg Tab 100 Mg PO DAILY Quetiapine (Quetiapine Fumarate) 300 Mg Tab 300 Mg PO HS Zantac (Ranitidine HCl) 150 Mg Tab 150 Mg PO DAILY Buspirone (Buspirone HCl) 30 Mg Tab 20 Mg PO TID Gabapentin 600 Mg Tab 600 Mg PO QID Review of Systems Except as stated in HPI: all other systems reviewed are Neg General / Constitutional: Positive: Fever HENT: Positive: Sore Throat, Congestion, No: Headaches Respiratory: Positive: Cough, Shortness of Breath Gastrointestinal: No: Nausea, Vomiting Musculoskeletal: Positive: Myalgias Skin: No Rash, No Change in Pigmentation Neurologic: No: Weakness, Dizziness Physical Exam Narrative GENERAL: Awake and alert, in no acute distress. SKIN: Focused skin assessment warm/dry. No wounds or signs of infection. HEAD: Atraumatic. Normocephalic. EYES: Pupils equal and round. No scleral icterus. ENT: Mucous membranes pink and moist. No tonsillar swelling or exudates. NECK: Trachea midline. No JVD. CARDIOVASCULAR: Regular rate and rhythm. No murmur appreciated. RESPIRATORY: No accessory muscle use. decreased breath sounds. Breath sounds equal bilaterally. GASTROINTESTINAL: Abdomen soft, non-tender, nondistended. MUSCULOSKELETAL: No obvious deformities. No clubbing. No cyanosis. No edema. NEUROLOGICAL: Awake and alert. No obvious cranial nerve deficits. Motor grossly within normal limits. Normal speech. PSYCHIATRIC: Appropriate mood and affect; insight and judgment normal. Data Data Last Documented VS Vital Signs Date Time Temp Pulse Resp B/P (MAP) Pulse Ox O2 Delivery O2 Flow Rate FiO2 02/25/17 10:54 85 18 147/82 (103) 98 Room Air 02/25/17 07:52 98.0 Orders Orders Iv Access Insert/Monitor (02/25/17 08:21) Complete Blood Count With Diff (02/25/17 08:21) Comprehensive Metabolic Panel (02/25/17 08:21) Electrocardiogram (02/25/17 ) Troponin I (02/25/17 08:21) Chest, Pa & Lat (02/25/17 ) Influenzae A/B Antigen (02/25/17 08:21) Sodium Chlor 0.9% 1000 Ml Inj (Ns 1000 M (02/25/17 08:30) Ketorolac Inj (Toradol Inj) (02/25/17 08:30) Ondansetron Inj (Zofran Inj) (02/25/17 08:30) Albuterol-Ipratropium Neb (Duoneb Neb) (02/25/17 08:30) Ct Thorax/ Chest W Iv Contrast (02/25/17 ) Iohexol 350 Inj (Omnipaque 350 Inj) (02/25/17 09:54) Ceftriaxone Inj (Rocephin Inj) (02/25/17 10:45) Azithromycin Inj (Zithromax Inj) (02/25/17 10:45) Albuterol-Ipratropium Neb (Duoneb Neb) (02/25/17 10:45) Prednisone (Deltasone) (02/25/17 10:45) Labs Laboratory Tests Test 02/25/17 08:30 White Blood Count 10.5 TH/MM3 Red Blood Count 4.31 MIL/MM3 Hemoglobin 12.8 GM/DL Hematocrit 39.1 % Mean Corpuscular Volume 90.7 FL Mean Corpuscular Hemoglobin 29.7 PG Mean Corpuscular Hemoglobin Concent 32.8 % Red Cell Distribution Width 14.0 % Platelet Count 295 TH/MM3 Mean Platelet Volume 7.2 FL Neutrophils (%) (Auto) 68.0 % Lymphocytes (%) (Auto) 19.8 % Monocytes (%) (Auto) 7.0 % Eosinophils (%) (Auto) 1.4 % Basophils (%) (Auto) 3.8 % Neutrophils # (Auto) 7.2 TH/MM3 Lymphocytes # (Auto) 2.1 TH/MM3 Monocytes # (Auto) 0.7 TH/MM3 Eosinophils # (Auto) 0.1 TH/MM3 Basophils # (Auto) 0.4 TH/MM3 CBC Comment DIFF FINAL Differential Comment Blood Urea Nitrogen 13 MG/DL Creatinine 1.00 MG/DL Random Glucose 99 MG/DL Total Protein 6.5 GM/DL Albumin 2.7 GM/DL Calcium Level 8.4 MG/DL Alkaline Phosphatase 96 U/L Aspartate Amino Transf (AST/SGOT) 9 U/L Alanine Aminotransferase (ALT/SGPT) 13 U/L Total Bilirubin 0.3 MG/DL Sodium Level 139 MEQ/L Potassium Level 3.9 MEQ/L Chloride Level 104 MEQ/L Carbon Dioxide Level 30.1 MEQ/L Anion Gap 5 MEQ/L Estimat Glomerular Filtration Rate 79 ML/MIN Troponin I LESS THAN 0.02 NG/ML MDM Medical Decision Making Medical Screen Exam Complete: Yes Emergency Medical Condition: Yes Medical Record Reviewed: Yes Interpretation(s) ECG shows NSR at 77, no ST elevation or depression Differential Diagnosis Pneumonia versus COPD exacerbation versus influenza versus URI Narrative Course Patient is a 51-year-old male who comes in complaining of body aches, fever, cough. Exam shows decreased breath sounds both lungs. IV established, labs sent. Labs show no acute abnormalities. Influenza test is negative. Chest x- ray concerning for a 1.3 cm nodule. CAT scan was performed that shows patchy airspace disease. Patient was given a DuoNeb, IV fluids, Tylenol. He reports feeling better. Last 24 hours Impressions Chest X-Ray 02/25/17 0000 Signed Impressions: Service Date/Time: Saturday, February 25, 2017 08:36 - CONCLUSION: Questionable 1.3 cm pulmonary nodule on the right. CT imaging of the thorax would be of benefit for further assessment. This was not seen on previous examination. Terry Wright MD Chest CT 02/25/17 0000 Signed Impressions: Service Date/Time: Saturday, February 25, 2017 09:46 - CONCLUSION: There are dispersed areas of patchy airspace disease in the right lung primarily upper lobe and posterior lower lobes. Minimal area in the left apex additionally appreciated. Small bilateral pleural effusions layering posteriorly. Macario Garzon MD Patient given a dose of Rocephin and azithromycin. Given a dose of prednisone. He'll be discharged with prescriptions for azithromycin, albuterol, prednisone. He is advised follow-up with a primary care doctor. Advised to return any time for any worsening symptoms. Advised to quit smoking. Diagnosis Primary Impression: Pneumonia Qualified Codes: J18.9 - Pneumonia, unspecified organism Referrals: [facility] call for appointment Patient Instructions: Bacterial Pneumonia (ED), General Instructions Additional Instructions: Take all of your antibiotic. Drink plenty of fluids. Start the prednisone tomorrow as she had a dose or any today. Use albuterol as needed for shortness of breath. Follow-up with a primary care doctor. Return to the ED as needed for any worsening symptoms. Scripts Albuterol 8.5 GM Inh (Proair Hfa 8.5 GM Inh) 90 Mcg/Act Aer 2 PUFF INH Q4-6H Y for SHORTNESS OF BREATH, #1 INHALER 0 Refills 108 mcg/actuation Prov: Bushra Riley MD 02/25/17 Prednisone (Prednisone) 50 Mg Tab 50 MG PO DAILY for 4 Days, #4 TAB 0 Refills Prov: Bushra Riley MD 02/25/17 Azithromycin (Zithromax Z-Hakeem) 250 Mg Dspk 250 MG PO DIRECTED for Infection, #1 DSPK 0 Refills 500 MG (2 tabs) day 1, then 1 tab days 2-5. Prov: Bushra Riley MD 02/25/17 Disposition: 01 DISCHARGE HOME Condition: Stable Bushra Riley MD Feb 25, 2017 09:43
[2017-02-25] MEDS ORDERED: IOHEXOL 350 MG/ML 10 ML VIAL (for RAD DIAG) IVCONTRAST ONE (09:54)
--- NOTE | 2017-02-25 10:07 | RADRPT ---
EXAM DATE/TIME: 02/25/2017 09:46 [facility] COMPARISON: CHEST PA & LAT, February 25, 2017, 8:36. INDICATIONS : Abnormal chest xray. Cough. IV CONTRAST: 65 cc Omnipaque 350 (iohexol) IV RADIATION DOSE: 10.07 CTDIvol (mGy) MEDICAL HISTORY : Chronic obstructive pulmonary disease. SURGICAL HISTORY : None. ENCOUNTER: Initial ACUITY: 1 week PAIN SCALE: 0/10 LOCATION: chest TECHNIQUE: Volumetric scanning of the chest was performed. Using automated exposure control and adjustment of the mA and/or kV according to patient size, radiation dose was kept as low as reasonab ly achievable to obtain optimal diagnostic quality images. DICOM format image data is available lennox ctronically for review and comparison. Follow-up recommendations for detected pulmonary nodules are based at a minimum on nodule size and pa tient risk factors according to Fleischner Society Guidelines. FINDINGS: LUNGS: There are areas of dispersed patchy opacity airspace disease in the right lung primarily u pper lobe and all segments as well as in the right lower lobe posteriorly. Bilateral pleural thickeni ng is appreciated and minimal area of airspace disease in the left apex. The density seen on today's chest x-ray represents a rounded area of consolidation parenchymal infiltrate PLEURA: Bilateral posterior mild pleural thickening probably representing small effusions. MEDIASTINUM: The heart and great vessels demonstrate no acute abnormality. There is no mediastin al or hilar lymphadenopathy. AXILLAE: Within normal limits. No lymphadenopathy. SKELETAL: Within normal limits for patient age. MISCELLANEOUS: The visualized upper abdominal organs demonstrate no acute abnormality. CONCLUSION: There are dispersed areas of patchy airspace disease in the right lung primarily uppe r lobe and posterior lower lobes. Minimal area in the left apex additionally appreciated. Small bilat eral pleural effusions layering posteriorly. Macario Garzon MD on February 25, 2017 at 9:58 Board Certified Radiologist. This report was verified electronically.
[2017-02-25] MEDS ORDERED: cefTRIAXone INJ 1,000 MG in SODIUM CHLORIDE 0.9% INJ 100 ML IV ONE (10:45)
[2017-02-25] MEDS ORDERED: AZITHROMYCIN INJ 500 MG in SODIUM CHLOR 0.9% 250 ML INJ 250 ML IV ONE (10:45)
[2017-02-25] MEDS ORDERED: predniSONE 50 MG TAB PO ONE (10:45)
[2017-02-25 10:54] VITALS: BP 147/82; PULSE 85; RESP 18; O2SAT 98
[2017-02-25] MEDS ORDERED: ZITHTAB PO (11:14)
[2017-02-25] MEDS ORDERED: PRED50 PO (11:14)
[2017-02-25] MEDS ORDERED: ALBUAER3 INH (11:14)
--- NOTE | 2017-02-25 15:26 | EKG ---
Date Performed: 02/25/2017 Time Performed: 08:47:43 PTAGE: 51 years EKG: Sinus rhythm Since previous tracing, no significant change noted NORMAL ECG PREVIOUS TRACING : 07/24/2016 08.05 DOCTOR: Javi Fernandez Interpretating Date/Time 02/25/2017 15:26:03
== END 2017-02-25 12:44 | disposition home or self-care (01) ==
LOC: PHED 07:37
DX: J18.9 Pneumonia, unspecified organism (principal); J44.0 Chronic obstructive pulmonary disease with (acute) lower respiratory infection; F31.9 Bipolar disorder, unspecified; K21.9 Gastro-esophageal reflux disease without esophagitis; F17.210 Nicotine dependence, cigarettes, uncomplicated; Z86.73 Personal history of transient ischemic attack (TIA), and cerebral infarction without residual deficits; Z79.899 Other long term (current) drug therapy
CPT/HCPCS: 71046; 71260; 80053; 84484; 85025; 87804; 93005; 94640; 94664; 96361; 96365; 96368; 96375; 99285; J0456; J0696; J1885; J2405; J7030; J7050; J7512; Q9967

== ENCOUNTER 2017-03-10 11:01 | Emergency (ER) | payer MEDICARE ==
[~2017-03-10] VITALS: Ht 172.7 cm; Wt 76.8 kg
[~2017-03-10 11:01] MED LIST changes: +ALBUAER3 INH; -CIPR-9 PO; -NORC5TAB PO; +PRED50 PO; -TRAM50TA PO; +TRAZ100T10 PO; -TRAZ50TA12 PO; +ZITHTAB PO
[2017-03-10 11:10] VITALS: BP 122/65; PULSE 100; RESP 16; TEMP 98.9; O2SAT 92
[2017-03-10 11:33] VITALS: BP 100/71; PULSE 96; RESP 18; O2SAT 97
--- NOTE | 2017-03-10 11:33 | PD ---
HPI Chief Complaint: Respiratory Symptoms Time Seen by Provider: 11:33 Travel History International Travel<30 days: No Contact w/Intl Traveler<30days: No Traveled to known affect area: No History of Present Illness HPI 51-year-old male came to the emergency room with history of cough and not feeling well and vomiting black color emesis 2 last night. Patient says that he was diagnosed with pneumonia about a week ago. He took antibiotic and has finished. But he hasn't really felt 100% better. Patient is a smoker and has continued to smoke through the whole illness. And then yesterday he started having some abdominal discomfort and vomited twice and they both were black in color. He shouldn't used to be an alcoholic but has been recovering for past 1 year. He says he used to get pancreatitis but has not been diagnosed with cirrhosis or varices. He did not have any blood in his stool. Vital signs are stable except for his oxygen saturation which was 91% in triage. PFSH Past Medical History Narrative Medical List of his past medical, surgical, social and family history is reviewed from the nursing note. Hx Anticoagulant Therapy: No Autoimmune Disease: No Blood Disorders: No Bipolar Disorder: Yes Anxiety: Yes Depression: Yes Heart Rhythm Problems: No High Cholesterol: No Chemotherapy: No Chest Pain: No Congestive Heart Failure: No Cerebrovascular Accident: Yes (2000) Diabetes: No Diminished Hearing: Yes (both ears especially left) Endocrine: No Gastrointestinal Disorders: Yes GERD: Yes Genitourinary: Yes (NEW HESITENCY) Headaches: Yes Hypertension: No Immune Disorder: No Implanted Vascular Access Dvce: No Musculoskeletal: Yes (OLD BILATERAL ROTATOR CUFF INJURY) Neurologic: Yes Psychiatric: Yes (Inpatient, outpatient, psychotropic medications, and diagnosis) Reproductive: No Respiratory: Yes Immunizations Current: Yes Pancreatitis: Yes Radiation Therapy: No Seizures: Yes Past Surgical History Abdominal Surgery: Yes (RIGHT HERNIA REPAIR AUGUST 2013) Body Medical Devices: MESH IN GROIN FROM SURGERY Pacemaker: No Prostatectomy: Yes (REMOVED SCAR TISSUE) Other Surgery: Yes (RIGHT GROIN HERNIA REPAIR) Social History Alcohol Use: No (quit 2016 H/O HEAVY ETOH USE) Tobacco Use: Yes (1 PPD.) Substance Use: No Allergies-Medications (Allergen,Severity, Reaction): Coded Allergies: coconut (Unverified Allergy, Severe, ANAPHALAXIS, 03/10/17) acetaminophen (Unverified Adverse Reaction, Mild, Nausea/Vomiting, 03/10/17 ) hydrocodone (Unverified Adverse Reaction, Mild, Nausea/Vomiting, 03/10/17) *MDRO Multi-Drug Resistant Organism (Verified Adverse Reaction, Unknown, MRSA, 03/10/17) MRSA (arm wound) - 07/21/2005 Comments List of his allergies reviewed from the nursing note. Reported Meds & Prescriptions Reported Meds & Active Scripts Active Ventolin Hfa 18 GM Inh (Albuterol Sulfate) 90 Mcg/Act Aer 2 Puff INH Q4-6H PRN Protonix (Pantoprazole Sodium) 40 Mg Tab 40 Mg PO DAILY Proair Hfa 8.5 GM Inh (Albuterol Sulfate) 90 Mcg/Act Aer 2 Puff INH Q4-6H PRN 108 mcg/actuation Prednisone 50 Mg Tab 50 Mg PO DAILY 4 Days Reported Trazodone (Trazodone HCl) 100 Mg Tablet 100 Mg PO HS Lamotrigine 25 Mg Tab 25 Mg PO DAILY Quetiapine (Quetiapine Fumarate) 100 Mg Tab 100 Mg PO DAILY Quetiapine (Quetiapine Fumarate) 300 Mg Tab 300 Mg PO HS Zantac (Ranitidine HCl) 150 Mg Tab 150 Mg PO DAILY Buspirone (Buspirone HCl) 30 Mg Tab 20 Mg PO TID Gabapentin 600 Mg Tab 600 Mg PO QID Narrative Medication List of his home medications reviewed from the nursing note. Review of Systems Except as stated in HPI: all other systems reviewed are Neg Respiratory: Positive: Cough Gastrointestinal: Positive: Nausea, Vomiting, Abdominal Pain, Hematemesis Physical Exam Narrative GENERAL: Awake, alert, moderate distress SKIN: Focused skin assessment warm/dry. HEAD: Atraumatic. Normocephalic. EYES: Pupils equal and round. No scleral icterus. No injection or drainage. ENT: No nasal bleeding or discharge. Mucous membranes pink and moist. NECK: Trachea midline. No JVD. CARDIOVASCULAR: Regular rate and rhythm. No murmur appreciated. RESPIRATORY: No accessory muscle use. End expiratory wheeze GASTROINTESTINAL: Abdomen soft, non-tender, nondistended. Hepatic and splenic margins not palpable. MUSCULOSKELETAL: No obvious deformities. No clubbing. No cyanosis. No edema. NEUROLOGICAL: Awake and alert. No obvious cranial nerve deficits. Motor grossly within normal limits. Normal speech. PSYCHIATRIC: Appropriate mood and affect; insight and judgment normal. Data Data Last Documented VS Vital Signs Date Time Temp Pulse Resp B/P (MAP) Pulse Ox O2 Delivery O2 Flow Rate FiO2 03/10/17 13:28 99 18 124/67 (86) 98 03/10/17 12:01 Room Air 03/10/17 11:10 98.9 Orders Orders Complete Blood Count With Diff (03/10/17 11:43) Comprehensive Metabolic Panel (03/10/17 11:43) Prothrombin Time / Inr (Pt) (03/10/17 11:43) Iv Access Insert/Monitor (03/10/17 11:43) Ecg Monitoring (03/10/17 11:43) Oximetry (03/10/17 11:43) Oxygen Administration (03/10/17 11:43) Chest, Single Ap (03/10/17 11:43) Sodium Chloride 0.9% Flush (Ns Flush) (03/10/17 11:45) Albuterol-Ipratropium Neb (Duoneb Neb) (03/10/17 11:45) Lipase (03/10/17 11:43) Ct Abd/Pel W Iv Contrast(Rout) (03/10/17 ) Pantoprazole Inj (Protonix Inj) (03/10/17 11:45) Sodium Chlor 0.9% 1000 Ml Inj (Ns 1000 M (03/10/17 11:45) Iohexol 350 Inj (Omnipaque 350 Inj) (03/10/17 12:53) Ed Discharge Order (03/10/17 13:16) Labs Laboratory Tests Test 03/10/17 12:05 White Blood Count 13.5 TH/MM3 Red Blood Count 4.23 MIL/MM3 Hemoglobin 12.8 GM/DL Hematocrit 38.7 % Mean Corpuscular Volume 91.6 FL Mean Corpuscular Hemoglobin 30.1 PG Mean Corpuscular Hemoglobin Concent 32.9 % Red Cell Distribution Width 14.9 % Platelet Count 405 TH/MM3 Mean Platelet Volume 6.6 FL Neutrophils (%) (Auto) 77.6 % Lymphocytes (%) (Auto) 14.3 % Monocytes (%) (Auto) 6.0 % Eosinophils (%) (Auto) 0.7 % Basophils (%) (Auto) 1.4 % Neutrophils # (Auto) 10.5 TH/MM3 Lymphocytes # (Auto) 1.9 TH/MM3 Monocytes # (Auto) 0.8 TH/MM3 Eosinophils # (Auto) 0.1 TH/MM3 Basophils # (Auto) 0.2 TH/MM3 CBC Comment DIFF FINAL Differential Comment Prothrombin Time 10.1 SEC Prothromb Time International Ratio 1.0 RATIO Blood Urea Nitrogen 9 MG/DL Creatinine 1.00 MG/DL Random Glucose 106 MG/DL Total Protein 6.5 GM/DL Albumin 2.8 GM/DL Calcium Level 8.4 MG/DL Alkaline Phosphatase 102 U/L Aspartate Amino Transf (AST/SGOT) 14 U/L Alanine Aminotransferase (ALT/SGPT) 15 U/L Total Bilirubin 0.3 MG/DL Sodium Level 138 MEQ/L Potassium Level 3.9 MEQ/L Chloride Level 103 MEQ/L Carbon Dioxide Level 30.3 MEQ/L Anion Gap 5 MEQ/L Estimat Glomerular Filtration Rate 79 ML/MIN Lipase 79 U/L MDM Medical Decision Making Medical Screen Exam Complete: Yes Emergency Medical Condition: Yes Medical Record Reviewed: Yes Differential Diagnosis Acute gastritis, pancreatitis, pneumonia, electrolyte abnormalities Narrative Course 1:13 PM chest x-ray and blood test results were within acceptable limits except for his white blood cell count which was slightly elevated. There was a CT scan of his abdomen and pelvis done which is negative for any acute abnormality. He was given IV Protonix. He was also given IV fluid bolus and 2 DuoNeb. I'm comfortable discharging him home. He obviously needs to stop smoking in order to feel better. Procedures EKG Prior to Arrival: No HemaPrompt Point of Care Internal Pos. & Neg. Controls: Passed Fecal Specimen Occult Blood: Negative Diagnosis Primary Impression: Acute gastritis Qualified Codes: K29.01 - Acute gastritis with bleeding Additional Impressions: Acute exacerbation of chronic obstructive pulmonary disease (COPD) Needs smoking cessation education Referrals: Primary Care Physician Additional Instructions: Take the medication as per the prescription direction. Use the albuterol inhaler 2 puffs every 4-6 hours the symptoms get better. He should stop smoking otherwise he has COPD will worsen. Do not eat any acidic food or fruit like lemon lying, strawberries, ketchup, tomatoes etc. follow-up with your primary care. The primary care may need to refer you to a GI specialist for an endoscopy. Return to the ER if condition worsens or any other concerns. Med/Other Pt SpecificInfo: Prescription(s) given Scripts Albuterol 18 GM Inh (Ventolin Hfa 18 GM Inh) 90 Mcg/Act Aer 2 PUFF INH Q4-6H Y for SHORTNESS OF BREATH, #1 INHALER 0 Refills Prov: Delores Sanchez MD 03/10/17 Pantoprazole (Protonix) 40 Mg Tab 40 MG PO DAILY for Reflux, #30 TAB 0 Refills Prov: Delores Sanchez MD 03/10/17 Disposition: 01 DISCHARGE HOME Condition: Stable Delores Sanchez MD Mar 10, 2017 11:33
[2017-03-10] MEDS ORDERED: PANTOPRAZOLE SODIUM 40 MG VIAL IV PUSH ONE (11:45)
[2017-03-10] MEDS ORDERED: SODIUM CHLORIDE 0.9% FLUSH 10 ML FLUSH IVF PRN (11:45)
[2017-03-10] MEDS ORDERED: SODIUM CHLOR 0.9% 1000 ML INJ 1,000 ML IV ONE (11:45)
[2017-03-10] MEDS: RESP: ALBUTEROL 2.5 MG/IPRATROPIUM 0.5 MG NEB (SCH) INH (12:00)
[2017-03-10 12:01] VITALS: O2SAT 97
[2017-03-10 12:12] LABS: AUTOMATED NEUTROPHIL # 10.5 TH/MM3 (1.8-7.7); BASOPHIL # 0.2 TH/MM3 (0-0.2); BASOPHIL % 1.4 % (0.0-2.0); EOSINOPHIL # 0.1 TH/MM3 (0-0.4); EOSINOPHIL % 0.7 % (0.0-4.0); HEMATOCRIT 38.7 % (39.0-51.0); HEMOGLOBIN 12.8 GM/DL (13.0-17.0); LYMPH % 14.3 % (9.0-44.0); LYMPHOCYTE # 1.9 TH/MM3 (1.0-4.8); MEAN CELL VOLUME 91.6 FL (80.0-100.0); MEAN CORPUSCULAR HEMOGLOBIN 30.1 PG (27.0-34.0); MEAN CORPUSCULAR HGB CONC 32.9 % (32.0-36.0); MEAN PLATELET VOLUME 6.6 FL (7.0-11.0); MONOCYTE # 0.8 TH/MM3 (0-0.9); NEUT % 77.6 % (16.0-70.0); PLATELET COUNT 405 TH/MM3 (150-450); RED BLOOD COUNT 4.23 MIL/MM3 (4.50-5.90); RED CELL DISTRIBUTION WIDTH 14.9 % (11.6-17.2); WHITE BLOOD COUNT 13.5 TH/MM3 (4.0-11.0)
--- NOTE | 2017-03-10 12:18 | RADRPT ---
EXAM DATE/TIME: 03/10/2017 11:54 [facility] COMPARISON: CHEST SINGLE AP, June 12, 2015, 0:44. INDICATIONS : Short of breath, cough, fever MEDICAL HISTORY : Chronic obstructive pulmonary disease. SURGICAL HISTORY : None. ENCOUNTER: Initial ACUITY: 1 week PAIN SCORE: 9/10 LOCATION: Bilateral chest FINDINGS: A single view of the chest demonstrates the lungs to be symmetrically aerated without evidence of mas s, infiltrate or effusion. The cardiomediastinal contours are unremarkable. Osseous structures are intact. CONCLUSION: Normal examination. Collette Myers MD on March 10, 2017 at 12:16 Board Certified Radiologist. This report was verified electronically.
[2017-03-10 12:25] LABS: CHLORIDE 103 MEQ/L (98-107); SODIUM (NA) 138 MEQ/L (136-145)
[2017-03-10 12:28] LABS: PROTHROMBIN TIME - PATIENT 10.1 SEC (9.8-11.6)
[2017-03-10 12:29] LABS: CALCIUM 8.4 MG/DL (8.5-10.1)
[2017-03-10 12:30] LABS: ALBUMIN 2.8 GM/DL (3.4-5.0); BICARBONATE 30.3 MEQ/L (21.0-32.0); BLOOD UREA NITROGEN 9 MG/DL (7-18); GLUCOSE,RANDOM 106 MG/DL (74-106); LIPASE 79 U/L (73-393)
[2017-03-10 12:32] LABS: ALT (GPT) 15 U/L (12-78); AST (GOT) 14 U/L (15-37); GLOMERULAR FILTRATION RATE 79 ML/MIN (>89)
[2017-03-10 12:34] LABS: TOTAL BILIRUBIN ADULT 0.3 MG/DL (0.2-1.0); TOTAL PROTEIN 6.5 GM/DL (6.4-8.2)
[2017-03-10 12:35] LABS: ALKALINE PHOSPHATASE 102 U/L (45-117)
[2017-03-10] MEDS ORDERED: IOHEXOL 350 MG/ML 10 ML VIAL (for RAD DIAG) IVCONTRAST ONE (12:53)
--- NOTE | 2017-03-10 13:04 | RADRPT ---
EXAM DATE/TIME: 03/10/2017 12:50 [facility] COMPARISON: CT ABDOMEN & PELVIS W CONTRAST, June 16, 2016, 15:51. INDICATIONS : Dark emesis. IV CONTRAST: 90 cc Omnipaque 350 (iohexol) IV ORAL CONTRAST: No oral contrast ingested. RADIATION DOSE: 10.98 CTDIvol (mGy) MEDICAL HISTORY : Pancreatitis. Gastroesophageal reflux disease. SURGICAL HISTORY : Hernia repair. ENCOUNTER: Initial ACUITY: 1 day PAIN SCALE: 0/10 LOCATION: abdomen TECHNIQUE: Volumetric scanning of the abdomen and pelvis was performed. Using automated exposure control and ad justment of the mA and/or kV according to patient size, radiation dose was kept as low as reasonably achievable to obtain optimal diagnostic quality images. DICOM format image data is available electro nically for review and comparison. FINDINGS: LOWER LUNGS: Mild atelectasis at the dependent portion of the lower lobes bilaterally. LIVER: Several scattered subcentimeter hypodensities are unchanged, likely representing small cysts. Liver o therwise unremarkable. Gallbladder within normal limits. SPLEEN: 1 cm hypodensity in the posterior spleen unchanged likely representing a cyst or hemangioma. PANCREAS: Within normal limits. KIDNEYS: Normal in size and shape. There is no mass, stone or hydronephrosis. ADRENAL GLANDS: Within normal limits. VASCULAR: There is no aortic aneurysm. BOWEL/MESENTERY: No evidence of bowel dilatation. No free air or free fluid. Appendix within normal limits. ABDOMINAL WALL: Within normal limits. RETROPERITONEUM: There is no lymphadenopathy. BLADDER: Left-sided posterior urinary bladder diverticulum again noted. Bladder otherwise within normal limits . REPRODUCTIVE: Within normal limits. INGUINAL: There is no lymphadenopathy or hernia. MUSCULOSKELETAL: Mild osteoarthritic findings of the hips. CONCLUSION: No acute findings in the abdomen and pelvis. Spencer Gilliland MD on March 10, 2017 at 12:57 Board Certified Radiologist. This report was verified electronically.
[2017-03-10] MEDS ORDERED: VENTAER INH (13:16)
[2017-03-10] MEDS ORDERED: PROT40TA PO (13:16)
[2017-03-10 13:28] VITALS: BP 124/67
== END 2017-03-10 13:33 | disposition home or self-care (01) ==
LOC: PHED 11:01
DX: K29.00 Acute gastritis without bleeding (principal); J44.1 Chronic obstructive pulmonary disease with (acute) exacerbation; F31.9 Bipolar disorder, unspecified; F41.9 Anxiety disorder, unspecified; K21.9 Gastro-esophageal reflux disease without esophagitis; F17.200 Nicotine dependence, unspecified, uncomplicated; Z87.19 Personal history of other diseases of the digestive system; Z86.73 Personal history of transient ischemic attack (TIA), and cerebral infarction without residual deficits; Z79.51 Long term (current) use of inhaled steroids
CPT/HCPCS: 71045; 74177; 80053; 83690; 85025; 85610; 94640; 94664; 96361; 96374; 99285; C9113; J7030; Q9967

== ENCOUNTER 2017-04-27 19:01 | Emergency (ER) | payer MEDICARE ==
[~2017-04-27] VITALS: Ht 172.7 cm; Wt 72.6 kg
[~2017-04-27 19:01] MED LIST changes: +PROT40TA PO; +VENTAER INH; -ZITHTAB PO
[2017-04-27 19:04] VITALS: BP 141/76; PULSE 96; RESP 18; TEMP 98.2; O2SAT 97
[2017-04-27] MEDS ORDERED: PROPARACAINE HCL 0.5% OPHT SOLN 15 ML BTL EACH EYE ONE (19:15)
--- NOTE | 2017-04-27 19:18 | PD ---
HPI Chief Complaint: Eye Problems/Injury Time Seen by Provider: 19:12 Travel History International Travel<30 days: No Contact w/Intl Traveler<30days: No Traveled to known affect area: No History of Present Illness HPI 51-year-old male presents to the emergency department for evaluation of possible foreign body to the left eye. He states he was wearing safety goggles but a piece of debris got underneath his safety goggles and into his left eye. He reports eye irritation since. Patient is supposed or glasses, but does not have these with him at this time. He denies any other symptoms or complaints at this time. No exacerbating or alleviating factors. Moderate severity. He states his tetanus immunization is up-to-date. PFSH Past Medical History Hx Anticoagulant Therapy: No Autoimmune Disease: No Blood Disorders: No Bipolar Disorder: Yes Anxiety: Yes Depression: Yes Heart Rhythm Problems: No High Cholesterol: No Chemotherapy: No Chest Pain: No Congestive Heart Failure: No Cerebrovascular Accident: Yes (2000) Diabetes: No Diminished Hearing: Yes (both ears especially left) Endocrine: No Gastrointestinal Disorders: Yes GERD: Yes Genitourinary: Yes (NEW HESITENCY) Headaches: Yes Hypertension: No Immune Disorder: No Implanted Vascular Access Dvce: No Musculoskeletal: Yes (OLD BILATERAL ROTATOR CUFF INJURY) Neurologic: Yes Psychiatric: Yes (Inpatient, outpatient, psychotropic medications, and diagnosis) Reproductive: No Respiratory: Yes Immunizations Current: Yes Pancreatitis: Yes Radiation Therapy: No Seizures: Yes Past Surgical History Abdominal Surgery: Yes (RIGHT HERNIA REPAIR AUGUST 2013) Body Medical Devices: MESH IN GROIN FROM SURGERY Pacemaker: No Prostatectomy: Yes (REMOVED SCAR TISSUE) Other Surgery: Yes (RIGHT GROIN HERNIA REPAIR) Social History Alcohol Use: No (quit 2016 H/O HEAVY ETOH USE) Tobacco Use: Yes (1 PPD.) Substance Use: No Allergies-Medications (Allergen,Severity, Reaction): Coded Allergies: coconut (Unverified Allergy, Severe, ANAPHALAXIS, 04/27/17) acetaminophen (Unverified Adverse Reaction, Mild, Nausea/Vomiting, 04/27/17 ) hydrocodone (Unverified Adverse Reaction, Mild, Nausea/Vomiting, 04/27/17) *MDRO Multi-Drug Resistant Organism (Verified Adverse Reaction, Unknown, MRSA, 04/27/17) MRSA (arm wound) - 07/21/2005 Reported Meds & Prescriptions Reported Meds & Active Scripts Active Ventolin Hfa 18 GM Inh (Albuterol Sulfate) 90 Mcg/Act Aer 2 Puff INH Q4-6H PRN Protonix (Pantoprazole Sodium) 40 Mg Tab 40 Mg PO DAILY Proair Hfa 8.5 GM Inh (Albuterol Sulfate) 90 Mcg/Act Aer 2 Puff INH Q4-6H PRN 108 mcg/actuation Prednisone 50 Mg Tab 50 Mg PO DAILY 4 Days Reported Trazodone (Trazodone HCl) 100 Mg Tablet 100 Mg PO HS Lamotrigine 25 Mg Tab 25 Mg PO DAILY Quetiapine (Quetiapine Fumarate) 100 Mg Tab 100 Mg PO DAILY Quetiapine (Quetiapine Fumarate) 300 Mg Tab 300 Mg PO HS Zantac (Ranitidine HCl) 150 Mg Tab 150 Mg PO DAILY Buspirone (Buspirone HCl) 30 Mg Tab 20 Mg PO TID Gabapentin 600 Mg Tab 600 Mg PO QID Review of Systems Except as stated in HPI: all other systems reviewed are Neg Physical Exam Narrative GENERAL: Well-nourished, well-developed male patient, afebrile. SKIN: Focused skin assessment warm/dry. HEAD: Normocephalic. Atraumatic. ENT: Mucosa pink and moist. No erythema or exudates. No uvular edema. No uvular , palatal, or tonsillar deviation. Airway patent. Nasal turbinates appear normal without nasal blood, purulent drainage or septal hematoma. Bilateral tympanic membranes are clear without erythema or perforation. EYES: No scleral icterus. Left conjunctiva is erythematous. PERRLA. Fluorescein examination reveals foreign body to the 3 o'clock position of the left cornea. No foreign body on Upper lid eversion. NECK: Supple, trachea midline. No JVD or lymphadenopathy. CARDIOVASCULAR: Regular rate and rhythm without murmurs, gallops, or rubs. RESPIRATORY: Breath sounds equal bilaterally. No accessory muscle use. GASTROINTESTINAL: Abdomen soft, non-tender, nondistended. MUSCULOSKELETAL: No cyanosis, or edema. BACK: Nontender without obvious deformity. No CVA tenderness. Data Data Last Documented VS Vital Signs Date Time Temp Pulse Resp B/P (MAP) Pulse Ox O2 Delivery O2 Flow Rate FiO2 04/27/17 19:04 98.2 96 18 141/76 (97) 97 Orders Orders Proparacaine 0.5% Opth Soln (Alcaine 0.5 (04/27/17 19:15) MDM Medical Decision Making Medical Screen Exam Complete: Yes Emergency Medical Condition: Yes Medical Record Reviewed: Yes Differential Diagnosis Foreign body versus corneal abrasion versus conjunctivitis versus iritis Narrative Course 51-year-old male presents to the emergency department for evaluation of possible foreign bodies to the left eyelid that occurred yesterday. Fluorescein examination reveals foreign body to the 3 o'clock position of the right cornea. My attending physician, Dr. Lei, assisted helped me and removing the foreign body with an 18-gauge needle. He recommends the patient return tomorrow for recheck. Patient will be discharged with a prescription for Ciloxan and ibuprofen for pain. The patient was discharged in stable condition with instructions, including return instructions and follow up instructions. Diagnosis Primary Impression: Foreign body of left eye Qualified Codes: T15.92XA - Foreign body on external eye, part unspecified, left eye, initial encounter Referrals: Accounts Receivable Processor call for appointment Patient Instructions: Eye Foreign Body (ED), General Instructions Additional Instructions: Use ciprofloxacin eyedrops as instructed. Take ibuprofen as instructed as needed with food for pain. Return tomorrow for recheck. Med/Other Pt SpecificInfo: Prescription(s) given Scripts Ibuprofen (Ibuprofen) 600 Mg Tab 600 MG PO TID Y for PAIN SCALE 1 TO 10, #21 TAB 0 Refills Prov: Marzena Mckeon 04/27/17 Ciprofloxacin Opth Drops (Ciloxan Opth Drops) 0.3% Soln 2 DROP LEFT EYE Q4H for EYE INFECTION, #1 BOTTLE 0 Refills Prov: Marzena Mckeon 04/27/17 Disposition: 01 DISCHARGE HOME Condition: Stable Marzena Mckeon Apr 27, 2017 19:18
[2017-04-27] MEDS ORDERED: CILO0.3S LEFT EYE (19:42)
[2017-04-27] MEDS ORDERED: IBUP-232 PO (19:42)
== END 2017-04-27 19:51 | disposition home or self-care (01) ==
LOC: PHEFT 19:01
DX: T15.02XA Foreign body in cornea, left eye, initial encounter (principal); K21.9 Gastro-esophageal reflux disease without esophagitis; F31.9 Bipolar disorder, unspecified; F41.8 Other specified anxiety disorders; H91.90 Unspecified hearing loss, unspecified ear; F17.200 Nicotine dependence, unspecified, uncomplicated; X58.XXXA Exposure to other specified factors, initial encounter; Z86.73 Personal history of transient ischemic attack (TIA), and cerebral infarction without residual deficits; Z87.19 Personal history of other diseases of the digestive system; Z87.39 Personal history of other diseases of the musculoskeletal system and connective tissue; Z86.69 Personal history of other diseases of the nervous system and sense organs
CPT/HCPCS: 65220

== ENCOUNTER 2017-06-17 12:08 | Emergency (ER) | payer SELFPAY, MEDICARE ==
[2017-06-17] MEDS: predniSONE 20 MG TAB PO (13:08)
[2017-06-17] MEDS: RESP: ALBUTEROL 2.5 MG/IPRATROPIUM 0.5 MG NEB (SCH) INH ×2 (13:14→13:16)
[2017-06-17] MEDS: LEVOFLOXACIN 750 MG TAB PO (14:04)
== END 2017-06-17 14:22 | disposition home or self-care (01) ==
LOC: PHEFT 12:08
DX: J18.9 Pneumonia, unspecified organism (principal); J44.0 Chronic obstructive pulmonary disease with (acute) lower respiratory infection; F31.9 Bipolar disorder, unspecified; F41.9 Anxiety disorder, unspecified; Z86.73 Personal history of transient ischemic attack (TIA), and cerebral infarction without residual deficits; K21.9 Gastro-esophageal reflux disease without esophagitis; F43.10 Post-traumatic stress disorder, unspecified; F17.200 Nicotine dependence, unspecified, uncomplicated
CPT/HCPCS: 71045; 87804; 87804-59; 94640; 94664; 99284

== ENCOUNTER 2017-07-01 11:37 | Emergency (ER) | payer SELFPAY ==
[~2017-07-01] VITALS: Ht 172.7 cm; Wt 78.1 kg
[~2017-07-01 11:37] MED LIST changes: +BENZ100 PO; +IBUP-232 PO; +LEVA750T9 PO; +PRED20 PO; -PRED50 PO; -PROT40TA PO
[2017-07-01 11:41] VITALS: BP 120/56; PULSE 103; RESP 20; TEMP 98.3; O2SAT 98
--- NOTE | 2017-07-01 13:14 | PD ---
HPI Chief Complaint: Respiratory Symptoms Time Seen by Provider: 12:55 Travel History International Travel<30 days: No Contact w/Intl Traveler<30days: No Traveled to known affect area: No History of Present Illness HPI 51yo M with PMH of COPD presents to the ED with c/o worsening cough, nasal congestion, throat pain, bilateral ear pain and sob. Pt said he felt warm last night and thinks he had a fever but no documented fever. +Post tussive vomiting. Denies any chest pain, nausea, abdominal pain. Pt was seen 06/17/17 and had CXR that showed early perihilar infiltrate of left lung. He was discharged with levofloxacin for 5 days and said he finished it. PFSH Past Medical History Hx Anticoagulant Therapy: No Autoimmune Disease: No Blood Disorders: No Bipolar Disorder: Yes Anxiety: Yes Depression: Yes Heart Rhythm Problems: No High Cholesterol: No Chemotherapy: No Chest Pain: No Congestive Heart Failure: No Cerebrovascular Accident: Yes (2000) Diabetes: No Diminished Hearing: Yes (both ears especially left) Endocrine: No Gastrointestinal Disorders: Yes GERD: Yes Genitourinary: Yes (NEW HESITENCY) Headaches: Yes Hypertension: No Immune Disorder: No Implanted Vascular Access Dvce: No Musculoskeletal: Yes (OLD BILATERAL ROTATOR CUFF INJURY) Neurologic: Yes Psychiatric: Yes (Inpatient, outpatient, PTSD) Reproductive: No Respiratory: Yes (copd) Immunizations Current: Yes Pancreatitis: Yes Radiation Therapy: No Seizures: Yes (FROM ALCOHOL USE, QUIT 1 YEAR AGO.) Influenza Vaccination: No Past Surgical History Abdominal Surgery: Yes (RIGHT HERNIA REPAIR AUGUST 2013) Body Medical Devices: MESH IN GROIN FROM SURGERY Pacemaker: No Prostatectomy: Yes (REMOVED SCAR TISSUE) Other Surgery: Yes (RIGHT GROIN HERNIA REPAIR) Social History Alcohol Use: No (quit 2015 H/O HEAVY ETOH USE) Tobacco Use: Yes (1/2 ppd) Substance Use: No Allergies-Medications (Allergen,Severity, Reaction): Coded Allergies: coconut (Verified Allergy, Severe, ANAPHALAXIS, 07/01/17) acetaminophen (Verified Adverse Reaction, Mild, Nausea/Vomiting, 07/01/17) hydrocodone (Verified Adverse Reaction, Mild, Nausea/Vomiting, 07/01/17) *MDRO Multi-Drug Resistant Organism (Verified Adverse Reaction, Unknown, MRSA, 07/01/17) MRSA (arm wound) - 07/21/2005 Reported Meds & Prescriptions Reported Meds & Active Scripts Active Tessalon Perles (Benzonatate) 100 Mg Cap 200 Mg PO TID PRN 3 Days Ventolin Hfa 18 GM Inh (Albuterol Sulfate) 90 Mcg/Act Aer 2 Puff INH Q4-6H PRN Prednisone 20 Mg Tab 40 Mg PO DAILY Take 40 mg (2 tablets) daily for 5 days Levaquin (Levofloxacin) 750 Mg Tablet 750 Mg PO DAILY 5 Days Ibuprofen 600 Mg Tab 600 Mg PO TID PRN Proair Hfa 8.5 GM Inh (Albuterol Sulfate) 90 Mcg/Act Aer 2 Puff INH Q4-6H PRN 108 mcg/actuation Reported Trazodone (Trazodone HCl) 100 Mg Tablet 100 Mg PO HS Lamotrigine 25 Mg Tab 25 Mg PO DAILY Quetiapine (Quetiapine Fumarate) 100 Mg Tab 50 Mg PO DAILY Quetiapine (Quetiapine Fumarate) 300 Mg Tab 300 Mg PO HS Zantac (Ranitidine HCl) 150 Mg Tab 150 Mg PO DAILY Buspirone (Buspirone HCl) 30 Mg Tab 20 Mg PO TID Gabapentin 600 Mg Tab 600 Mg PO QID Review of Systems Except as stated in HPI: all other systems reviewed are Neg Physical Exam Narrative GENERAL: 51yo M in mild distress. SKIN: Focused skin assessment warm/dry. HEAD: Atraumatic. Normocephalic. EYES: Pupils equal and round. No scleral icterus. No injection or drainage. ENT: No nasal bleeding or discharge. Mucous membranes pink and moist. NECK: Trachea midline. No JVD. CARDIOVASCULAR: Regular rate and rhythm. No murmur appreciated. RESPIRATORY: No accessory muscle use. Clear to auscultation. Breath sounds equal bilaterally. GASTROINTESTINAL: Abdomen soft, non-tender, nondistended. MUSCULOSKELETAL: No obvious deformities. No clubbing. No cyanosis. No edema. NEUROLOGICAL: Awake and alert. No obvious cranial nerve deficits. Motor grossly within normal limits. Normal speech. PSYCHIATRIC: Appropriate mood and affect; insight and judgment normal. Data Data Last Documented VS Vital Signs Date Time Temp Pulse Resp B/P (MAP) Pulse Ox O2 Delivery O2 Flow Rate FiO2 07/01/17 14:31 101 16 139/71 (93) 96 Room Air 07/01/17 13:26 21 07/01/17 11:41 98.3 Orders Orders Complete Blood Count With Diff (07/01/17 13:09) Basic Metabolic Panel (Bmp) (07/01/17 13:09) Magnesium (Mg) (07/01/17 13:09) Troponin I (07/01/17 13:09) Blood Culture (07/01/17 13:09) Electrocardiogram (07/01/17 13:09) Chest, Single Ap (07/01/17 13:09) Lactic Acid Sepsis Protocol (07/01/17 13:09) Methylprednisolone So Succ Inj (Solumedr (07/01/17 13:15) Albuterol Neb (Albuterol Neb) (07/01/17 13:15) Guaifen-Dm 200-20 Mg/10 Ml Liq (Robituss (07/01/17 13:30) Acetaminophen 650 Mg/20 Ml Liq (Tylenol (07/01/17 13:30) Influenzae A/B Antigen (07/01/17 13:35) Labs Laboratory Tests Test 07/01/17 13:30 White Blood Count 13.8 TH/MM3 Red Blood Count 4.01 MIL/MM3 Hemoglobin 12.8 GM/DL Hematocrit 36.1 % Mean Corpuscular Volume 90.0 FL Mean Corpuscular Hemoglobin 31.8 PG Mean Corpuscular Hemoglobin Concent 35.4 % Red Cell Distribution Width 17.2 % Platelet Count 649 TH/MM3 Mean Platelet Volume 6.9 FL Neutrophils (%) (Auto) 76.8 % Lymphocytes (%) (Auto) 14.5 % Monocytes (%) (Auto) 7.2 % Eosinophils (%) (Auto) 0.9 % Basophils (%) (Auto) 0.6 % Neutrophils # (Auto) 10.6 TH/MM3 Lymphocytes # (Auto) 2.0 TH/MM3 Monocytes # (Auto) 1.0 TH/MM3 Eosinophils # (Auto) 0.1 TH/MM3 Basophils # (Auto) 0.1 TH/MM3 CBC Comment DIFF FINAL Differential Comment Blood Urea Nitrogen 7 MG/DL Creatinine 0.94 MG/DL Random Glucose 116 MG/DL Calcium Level 8.3 MG/DL Magnesium Level 2.5 MG/DL Sodium Level 137 MEQ/L Potassium Level 4.0 MEQ/L Chloride Level 105 MEQ/L Carbon Dioxide Level 26.9 MEQ/L Anion Gap 5 MEQ/L Estimat Glomerular Filtration Rate 85 ML/MIN Lactic Acid Level 0.8 mmol/L Troponin I LESS THAN 0.02 NG/ML [facility] Medical Decision Making Medical Screen Exam Complete: Yes Emergency Medical Condition: Yes Interpretation(s) EKG: NSR 96bpm. Normal axis. No ST segment elevation or depression. QTc 403ms. Differential Diagnosis Pneumonia vs. URI vs. bronchitis vs. COPD Narrative Course 51yo M with cold like symptoms. Labs reviewed, mild leukocytosis at 13.8. Lactic acid normal. Troponin negative. BMP unremarkable. CXR showed improving left perihilar infiltrate. Influenza negative. Pt is not wheezing but since he feels sob and has COPD, pt was given solumedrol and duonebs. Pt is well appearing and saturating at 98% on RA. Pt given acetaminophen, robitussin and feels a little better. He has albuterol pump and cough medicine at home and does not need prescription for that. Pt is still a cig smoker so will cover with azithromycin. Pt will hold off antidepressants for a few days while on antibiotics due to possible prolong QT intervals. Return precautions given. Diagnosis Primary Impression: Bronchitis Patient Instructions: General Instructions Departure Forms: Tests/Procedures Additional Instructions: Please follow up with your primary care physician in 2-3 days. Return to the ED if symptoms worsen. Med/Other Pt SpecificInfo: Prescription(s) given Scripts Azithromycin (Zithromax Z-Hakeem) 250 Mg Dspk 250 MG PO DIRECTED for Infection, #1 DSPK 0 Refills 500 MG (2 tabs) day 1, then 1 tab days 2-5. Prov: JackiMadhavi DO 07/01/17 Prednisone (Prednisone) 50 Mg Tab 50 MG PO DAILY for 5 Days, #5 TAB 0 Refills Prov: Madhavi Echeverria DO 07/01/17 Disposition: 01 DISCHARGE HOME Condition: Stable EcheverrialOesya vicksravan LYONS July 01, 2017 13:14
[2017-07-01] MEDS ORDERED: methylPREDNISolone SOD SUCC 125 MG/2 ML VIAL IV PUSH ONE (13:15)
[2017-07-01] MEDS: RESP: ALBUTEROL 2.5 MG/3 ML NEB (SCH) INH (13:24)
[2017-07-01 13:26] VITALS: O2SAT 98
[2017-07-01] MEDS ORDERED: guaiFENesin/DEXTROMETHORPHAN 200 MG/20 MG/10 ML CUP PO ONE (13:30)
[2017-07-01] MEDS ORDERED: ACETAMINOPHEN 650 MG/20.3 ML UDC PO ONE (13:30)
[2017-07-01 14:02] LABS: CHLORIDE 105 MEQ/L (98-107); SODIUM (NA) 137 MEQ/L (136-145)
[2017-07-01 14:05] LABS: CALCIUM 8.3 MG/DL (8.5-10.1)
[2017-07-01 14:06] LABS: BICARBONATE 26.9 MEQ/L (21.0-32.0); BLOOD UREA NITROGEN 7 MG/DL (7-18); GLUCOSE,RANDOM 116 MG/DL (74-106); MAGNESIUM 2.5 MG/DL (1.5-2.5)
[2017-07-01 14:07] LABS: AUTOMATED NEUTROPHIL # 10.6 TH/MM3 (1.8-7.7); BASOPHIL # 0.1 TH/MM3 (0-0.2); BASOPHIL % 0.6 % (0.0-2.0); EOSINOPHIL # 0.1 TH/MM3 (0-0.4); EOSINOPHIL % 0.9 % (0.0-4.0); HEMATOCRIT 36.1 % (39.0-51.0); HEMOGLOBIN 12.8 GM/DL (13.0-17.0); LYMPH % 14.5 % (9.0-44.0); MEAN CORPUSCULAR HEMOGLOBIN 31.8 PG (27.0-34.0); MEAN CORPUSCULAR HGB CONC 35.4 % (32.0-36.0); MEAN PLATELET VOLUME 6.9 FL (7.0-11.0); MONO % 7.2 % (0.0-8.0); NEUT % 76.8 % (16.0-70.0); PLATELET COUNT 649 TH/MM3 (150-450); RED BLOOD COUNT 4.01 MIL/MM3 (4.50-5.90); RED CELL DISTRIBUTION WIDTH 17.2 % (11.6-17.2); WHITE BLOOD COUNT 13.8 TH/MM3 (4.0-11.0)
[2017-07-01 14:09] LABS: CREATININE 0.94 MG/DL (0.60-1.30); GLOMERULAR FILTRATION RATE 85 ML/MIN (>89)
[2017-07-01 14:15] LABS: TROPONIN I LESS THAN 0.02 NG/ML (0.02-0.05)
--- NOTE | 2017-07-01 14:30 | RADRPT ---
EXAM DATE/TIME: 07/01/2017 13:22 [facility] COMPARISON: CHEST SINGLE AP, June 17, 2017, 13:12. INDICATIONS : Evaluate for pneumonia. Shortness of breath. MEDICAL HISTORY : Chronic obstructive pulmonary disease. SURGICAL HISTORY : None. ENCOUNTER: Initial ACUITY: 1 day PAIN SCORE: 0/10 LOCATION: Bilateral chest FINDINGS: A single view of the chest demonstrates interval improvement in the left perihilar infiltrate. Minima l density persists. Right lung remains clear. Heart size is normal. Osseous structures are intact. CONCLUSION: Improving left perihilar infiltrate. Maicol Chopra MD on July 01, 2017 at 14:27 Board Certified Radiologist. This report was verified electronically.
[2017-07-01 14:31] VITALS: BP 139/71; PULSE 101; RESP 16; O2SAT 96
[2017-07-01] MEDS ORDERED: ZITHTAB PO (15:17)
[2017-07-01] MEDS ORDERED: PRED50 PO (15:17)
[2017-07-01 15:37] VITALS: BP 119/67; PULSE 105; RESP 16; O2SAT 97
--- NOTE | 2017-07-02 16:55 | EKG ---
Date Performed: 07/01/2017 Time Performed: 13:21:39 PTAGE: 51 years EKG: Sinus rhythm BORDERLINE RIGHT AXIS DEVIATION BORDERLINE ECG PREVIOUS TRACING : 02/25/2017 08.47 Since the previous tracing, no significant change noted DOCTOR: Cassy Dominguez Interpretating Date/Time 07/02/2017 16:54:00
== END 2017-07-01 15:55 | disposition home or self-care (01) ==
LOC: PHED 11:37
DX: J40 Bronchitis, not specified as acute or chronic (principal); R94.31 Abnormal electrocardiogram [ECG] [EKG]; J02.9 Acute pharyngitis, unspecified; J44.9 Chronic obstructive pulmonary disease, unspecified; H92.03 Otalgia, bilateral; K21.9 Gastro-esophageal reflux disease without esophagitis; F17.210 Nicotine dependence, cigarettes, uncomplicated
CPT/HCPCS: 71045; 80048; 83605; 83735; 84484; 85025; 87040; 87804; 93005; 94640; 94664; 96374; 99285; J2930; J7613

== ENCOUNTER 2017-08-06 15:25 | Emergency (ER) | payer SELFPAY ==
[~2017-08-06] VITALS: Ht 172.7 cm; Wt 77.0 kg
[~2017-08-06 15:25] MED LIST changes: +PRED50 PO; +ZITHTAB PO
[2017-08-06 15:34] VITALS: BP 142/67; PULSE 115; RESP 20; TEMP 98.3; O2SAT 96
[2017-08-06 17:39] VITALS: BP 125/68; PULSE 102; RESP 24; O2SAT 99
--- NOTE | 2017-08-06 17:40 | PD ---
HPI Chief Complaint: Abdominal Pain Time Seen by Provider: 17:28 Travel History International Travel<30 days: No Contact w/Intl Traveler<30days: No Traveled to known affect area: No History of Present Illness HPI 51-year-old male presents with feeling something pop in his lower abdomen is concerned his hernia repair is broken. He states that he has been having cough and congestion and feels like he has a cold and that is why he felt something pop when he coughed. He states his surgeon was here but he does not know their name. He denies any other concurrent complaints other than intermittent fever. Quality of pain is sharp. Severity is moderate. Pain is worse with movement. He denies other modifying factors. Duration is couple of hours. Location is lower abdomen. PFSH Past Medical History Hx Anticoagulant Therapy: No Autoimmune Disease: No Blood Disorders: No Bipolar Disorder: Yes Anxiety: Yes Depression: Yes Heart Rhythm Problems: No High Cholesterol: No Chemotherapy: No Chest Pain: No Congestive Heart Failure: No COPD: Yes Cerebrovascular Accident: Yes (2000) Diabetes: No Diminished Hearing: Yes (both ears especially left) Endocrine: No Gastrointestinal Disorders: Yes GERD: Yes Genitourinary: Yes (NEW HESITENCY) Headaches: Yes Hypertension: No Immune Disorder: No Implanted Vascular Access Dvce: No Musculoskeletal: Yes (OLD BILATERAL ROTATOR CUFF INJURY) Neurologic: Yes Psychiatric: Yes (Inpatient, outpatient, PTSD) Reproductive: No Respiratory: Yes Immunizations Current: Yes Pancreatitis: Yes Radiation Therapy: No Seizures: Yes (FROM ALCOHOL USE, QUIT 1 YEAR AGO.) Tetanus Vaccination: < 5 Years Influenza Vaccination: No Past Surgical History Abdominal Surgery: Yes (RIGHT HERNIA REPAIR AUGUST 2013) Body Medical Devices: MESH IN GROIN FROM SURGERY Pacemaker: No Prostatectomy: Yes (REMOVED SCAR TISSUE) Other Surgery: Yes (RIGHT GROIN HERNIA REPAIR) Social History Alcohol Use: No (quit 2015 H/O HEAVY ETOH USE) Tobacco Use: Yes (2 ppd) Substance Use: No Allergies-Medications (Allergen,Severity, Reaction): Coded Allergies: coconut (Verified Allergy, Severe, ANAPHALAXIS, 08/06/17) acetaminophen (Verified Adverse Reaction, Mild, Nausea/Vomiting, 08/06/17) hydrocodone (Verified Adverse Reaction, Mild, Nausea/Vomiting, 08/06/17) *MDRO Multi-Drug Resistant Organism (Verified Adverse Reaction, Unknown, MRSA, 08/06/17) MRSA (arm wound) - 07/21/2005 Reported Meds & Prescriptions Reported Meds & Active Scripts Active Ventolin Hfa 18 GM Inh (Albuterol Sulfate) 90 Mcg/Act Aer 2 Puff INH Q4-6H PRN Reported Buspirone (Buspirone HCl) 10 Mg Tab 20 Mg PO DAILY Trazodone (Trazodone HCl) 100 Mg Tablet 100 Mg PO HS Lamotrigine 25 Mg Tab 25 Mg PO DAILY Quetiapine (Quetiapine Fumarate) 100 Mg Tab 50 Mg PO DAILY Quetiapine (Quetiapine Fumarate) 300 Mg Tab 300 Mg PO HS Zantac (Ranitidine HCl) 150 Mg Tab 150 Mg PO DAILY Gabapentin 600 Mg Tab 600 Mg PO QID Review of Systems Except as stated in HPI: all other systems reviewed are Neg Physical Exam Narrative GENERAL: 51-year-old male who appears uncomfortable SKIN: Focused skin assessment warm/dry. HEAD: Atraumatic. Normocephalic. EYES: Pupils equal and round. No scleral icterus. No injection or drainage. ENT: Mucous membranes pink and moist. Rhinorrhea noted NECK: Trachea midline. CARDIOVASCULAR: Regular rate and rhythm. RESPIRATORY: No accessory muscle use. Clear to auscultation. Breath sounds equal bilaterally. GASTROINTESTINAL: Abdomen soft, diffusely tender without obvious palpable hernia but limited exam, nondistended. MUSCULOSKELETAL: No obvious deformities. No clubbing. No cyanosis. NEUROLOGICAL: Awake and alert. Motor grossly within normal limits. Normal speech. PSYCHIATRIC: Appropriate mood and affect; insight and judgment normal. Data Data Last Documented VS Vital Signs Date Time Temp Pulse Resp B/P (MAP) Pulse Ox O2 Delivery O2 Flow Rate FiO2 08/06/17 17:39 102 24 125/68 (87) 99 Room Air 08/06/17 15:34 98.3 Orders Orders Complete Blood Count With Diff (08/06/17 17:36) Comprehensive Metabolic Panel (08/06/17 17:36) Urinalysis - C+S If Indicated (08/06/17 17:36) Lipase (08/06/17 17:36) Ct Abd/Pel W Iv Contrast(Rout) (08/06/17 ) Iv Access Insert/Monitor (08/06/17 17:36) Oximetry (08/06/17 17:36) Chest, Pa & Lat (08/06/17 ) Influenzae A/B Antigen (08/06/17 17:36) Iohexol 350 Inj (Omnipaque 350 Inj) (08/06/17 19:21) Labs Laboratory Tests Test 08/06/17 17:40 08/06/17 19:10 White Blood Count 17.5 TH/MM3 Red Blood Count 4.00 MIL/MM3 Hemoglobin 12.4 GM/DL Hematocrit 37.7 % Mean Corpuscular Volume 94.2 FL Mean Corpuscular Hemoglobin 31.0 PG Mean Corpuscular Hemoglobin Concent 32.9 % Red Cell Distribution Width 16.9 % Platelet Count 602 TH/MM3 Mean Platelet Volume 6.8 FL Neutrophils (%) (Auto) 77.3 % Lymphocytes (%) (Auto) 13.5 % Monocytes (%) (Auto) 8.2 % Eosinophils (%) (Auto) 0.7 % Basophils (%) (Auto) 0.3 % Neutrophils # (Auto) 13.5 TH/MM3 Lymphocytes # (Auto) 2.3 TH/MM3 Monocytes # (Auto) 1.4 TH/MM3 Eosinophils # (Auto) 0.1 TH/MM3 Basophils # (Auto) 0.0 TH/MM3 CBC Comment DIFF FINAL Differential Comment Blood Urea Nitrogen 11 MG/DL Creatinine 0.95 MG/DL Random Glucose 90 MG/DL Total Protein 7.8 GM/DL Albumin 2.8 GM/DL Calcium Level 9.0 MG/DL Alkaline Phosphatase 141 U/L Aspartate Amino Transf (AST/SGOT) 11 U/L Alanine Aminotransferase (ALT/SGPT) 17 U/L Total Bilirubin 0.2 MG/DL Sodium Level 137 MEQ/L Potassium Level 4.2 MEQ/L Chloride Level 102 MEQ/L Carbon Dioxide Level 25.1 MEQ/L Anion Gap 10 MEQ/L Estimat Glomerular Filtration Rate 84 ML/MIN Lipase 152 U/L [facility] Medical Decision Making Medical Screen Exam Complete: Yes Emergency Medical Condition: Yes Medical Record Reviewed: Yes (Past history confirmed) Differential Diagnosis Pancreatitis, hernia, gastritis, pneumonia, UTI Narrative Course We will check blood work, urinalysis, CT, chest x-ray and reevaluate Physician Communication Physician Communication dr garsia to follow workup and reeval Aura Mckinney MD Aug 06, 2017 17:40
[2017-08-06] MEDS ORDERED: BUSP10TA PO (18:01)
--- NOTE | 2017-08-06 18:02 | RADRPT ---
EXAM DATE: 08/06/2017 5:58 PM EDT AGE/SEX: 51 years / Male INDICATIONS: Cough. CLINICAL DATA: This is the patient's sequela encounter. Patient reports that signs and symptoms have been present for 4 - 6 months and indicates a pain score of 0/10. MEDICAL/SURGICAL HISTORY: Chronic obstructive pulmonary disease. None. COMPARISON: . FINDINGS: PA and lateral views of the chest demonstrate the lungs to be symmetrically aerated without evidence of mass, infiltrate or effusion. The cardiomediastinal contours are unremarkable. Osseous structures are intact. CONCLUSION: No acute disease Electronically signed by: Cash Hua MD 08/06/2017 6:01 PM EDT
[2017-08-06 18:27] LABS: AUTOMATED NEUTROPHIL # 13.5 TH/MM3 (1.8-7.7); BASOPHIL % 0.3 % (0.0-2.0); EOSINOPHIL # 0.1 TH/MM3 (0-0.4); EOSINOPHIL % 0.7 % (0.0-4.0); HEMATOCRIT 37.7 % (39.0-51.0); HEMOGLOBIN 12.4 GM/DL (13.0-17.0); LYMPH % 13.5 % (9.0-44.0); LYMPHOCYTE # 2.3 TH/MM3 (1.0-4.8); MEAN CELL VOLUME 94.2 FL (80.0-100.0); MEAN CORPUSCULAR HGB CONC 32.9 % (32.0-36.0); MEAN PLATELET VOLUME 6.8 FL (7.0-11.0); MONO % 8.2 % (0.0-8.0); MONOCYTE # 1.4 TH/MM3 (0-0.9); NEUT % 77.3 % (16.0-70.0); PLATELET COUNT 602 TH/MM3 (150-450); RED CELL DISTRIBUTION WIDTH 16.9 % (11.6-17.2); WHITE BLOOD COUNT 17.5 TH/MM3 (4.0-11.0)
[2017-08-06 18:40] LABS: ALBUMIN 2.8 GM/DL (3.4-5.0); AST (GOT) 11 U/L (15-37); BICARBONATE 25.1 MEQ/L (21.0-32.0); BLOOD UREA NITROGEN 11 MG/DL (7-18); CHLORIDE 102 MEQ/L (98-107); CREATININE 0.95 MG/DL (0.60-1.30); GLOMERULAR FILTRATION RATE 84 ML/MIN (>89); GLUCOSE,RANDOM 90 MG/DL (74-106); SODIUM (NA) 137 MEQ/L (136-145)
[2017-08-06 18:41] LABS: ALT (GPT) 17 U/L (12-78)
[2017-08-06 18:44] LABS: ALKALINE PHOSPHATASE 141 U/L (45-117); TOTAL BILIRUBIN ADULT 0.2 MG/DL (0.2-1.0); TOTAL PROTEIN 7.8 GM/DL (6.4-8.2)
[2017-08-06] MEDS ORDERED: IOHEXOL 350 MG/ML 10 ML VIAL (for RAD DIAG) IVCONTRAST ONE (19:21)
[2017-08-06 19:31] LABS: BILIRUBIN, URINE NEG (NEG); BLOOD, URINE NEG (NEG); GLUCOSE,URINE NEG (NEG); KETONE, URINE NEG (NEG); NITRITE,URINE NEG (NEG); URINE COLOR YELLOW (YELLW/STRAW); URINE LEUKOCYTE ESTERASE NEG (NEG)
--- NOTE | 2017-08-06 19:47 | RADRPT ---
EXAM DATE: 08/06/2017 7:26 PM EDT AGE/SEX: 51 years / Male INDICATIONS: Abdominal pain, bilateral inguinal area pain. CLINICAL DATA: This is the patient's initial encounter. Patient reports that signs and symptoms have been present for 1 day and indicates a pain score of 10/10. MEDICAL/SURGICAL HISTORY: Cerebrovascular disease. Chronic obstructive pulmonary disease. Gas troesophageal reflux disease. Pancreatitis, seizures. Prostatectomy. ORAL CONTRAST: No oral contrast ingested. RADIATION DOSE: 8.24 CTDI (mGy) COMPARISON: [facility], CT ABDOMEN & PELVIS W CONTRAST, 03/10/2017. . TECHNIQUE: Multiple contiguous axial images were obtained through the abdomen and pelvis following b olus infusion of 92 ml Omnipaque 350 (iohexol) nonionic water-soluble contrast as a single exam dos e. No oral contrast ingested. Using automated exposure control and adjustment of the mA and/or kV ac cording to patient size, radiation dose was kept as low as reasonably achievable to obtain optimal di agnostic quality images. DICOM format image data is available electronically for review and comparis on. FINDINGS: The limited portion of lung base visualized is clear. The appearance of the liver, pancreas, adrenal glands and kidneys is within normal limits. The exam demonstrates an 8 mm cyst seen within the posterior aspect of the spleen. This is unchanged from prior exam. The abdominal aorta is normal in caliber. There is no retroperitoneal adenopathy. There is no free ai r free fluid. The visualized loops of small and large bowel are unremarkable. There are no findings t o indicate a bowel obstruction. Imaging through the pelvis demonstrates a diverticulum projecting off the left side the bladder. Ther e is no free fluid within the pelvis. No iliac or inguinal adenopathy is seen. There is minimal ingui nal hernia on the left. The visualized bony structures demonstrate degenerative changes but are otherwise intact. CONCLUSION: 1. 4 cm diverticulum projecting off the left side the bladder. 2. Minimal left inguinal hernia. 3. No free air free fluid identified. No findings to indicate a bowel obstruction. 4. Appearance of the examination is stable compared to prior study dated 03/10/2017. Electronically signed by: Teryr Wright MD 08/06/2017 7:46 PM EDT
[2017-08-06 20:26] VITALS: BP 125/68; PULSE 105; RESP 20; O2SAT 98
[2017-08-06] MEDS ORDERED: KETOROLAC TROMETHAMINE 30 MG/ML (IVP) VIAL IV PUSH ONE (20:45)
[2017-08-06] MEDS ORDERED: FAMOTIDINE 20 MG/2 ML VIAL IV PUSH SCH (21:00)
[2017-08-06] MEDS ORDERED: SODIUM CHLORIDE 0.9% FLUSH 10 ML FLUSH IV FLUSH PRN (21:00)
[2017-08-06] MEDS ORDERED: LIDOCAINE VISCOUS 2% SOLN 15 ML UDC PO ONE (21:00)
[2017-08-06] MEDS ORDERED: ALUMINUM/MAGNESIUM/SIMETH 30 ML CUP PO ONE (21:00)
[2017-08-06] MEDS ORDERED: ZOFR4TAB3 SL (21:09)
[2017-08-06] MEDS ORDERED: FAMO1TAB37 PO (21:09)
[2017-08-06] MEDS ORDERED: OMEP20TA93 PO (21:09)
--- NOTE | 2017-08-06 21:10 | PD ---
Physical Exam Date Seen by Provider: Aug 06, 2017 Time Seen by Provider: 19:20 Narrative Patient is signed out to me by the prior attending he has a CAT scan pending CAT scan shows a 4 cm prominence of the bladder which was there on a CAT scan prior he has a small inguinal hernia without entrapment that was seen on the prior CT most of his pain is epigastric I give him GI cocktail Pepcid IV and he feels better and he is will be discharged to follow-up as an outpatient Pepcid prescription and Zofran prescription Data Data Last Documented VS Vital Signs Date Time Temp Pulse Resp B/P (MAP) Pulse Ox O2 Delivery O2 Flow Rate FiO2 08/06/17 21:40 105 20 131/71 (91) 95 08/06/17 20:26 Room Air 08/06/17 15:34 98.3 Orders Orders Complete Blood Count With Diff (08/06/17 17:36) Comprehensive Metabolic Panel (08/06/17 17:36) Urinalysis - C+S If Indicated (08/06/17 17:36) Lipase (08/06/17 17:36) Ct Abd/Pel W Iv Contrast(Rout) (08/06/17 ) Iv Access Insert/Monitor (08/06/17 17:36) Oximetry (08/06/17 17:36) Chest, Pa & Lat (08/06/17 ) Influenzae A/B Antigen (08/06/17 17:36) Iohexol 350 Inj (Omnipaque 350 Inj) (08/06/17 19:21) Ketorolac Inj (Toradol Inj) (08/06/17 20:45) Famotidine Inj (Pepcid Inj) (08/06/17 21:00) Iv Access Insert/Monitor (08/06/17 20:54) Ecg Monitoring (08/06/17 20:54) Sodium Chloride 0.9% Flush (Ns Flush) (08/06/17 21:00) Al-Mag Hy-Si 40-40-4 Mg/Ml Liq (Mag-Al P (08/06/17 21:00) Lidocaine 2% Viscous (Xylocaine 2% Visco (08/06/17 21:00) Labs Laboratory Tests Test 08/06/17 17:40 08/06/17 19:10 White Blood Count 17.5 TH/MM3 Red Blood Count 4.00 MIL/MM3 Hemoglobin 12.4 GM/DL Hematocrit 37.7 % Mean Corpuscular Volume 94.2 FL Mean Corpuscular Hemoglobin 31.0 PG Mean Corpuscular Hemoglobin Concent 32.9 % Red Cell Distribution Width 16.9 % Platelet Count 602 TH/MM3 Mean Platelet Volume 6.8 FL Neutrophils (%) (Auto) 77.3 % Lymphocytes (%) (Auto) 13.5 % Monocytes (%) (Auto) 8.2 % Eosinophils (%) (Auto) 0.7 % Basophils (%) (Auto) 0.3 % Neutrophils # (Auto) 13.5 TH/MM3 Lymphocytes # (Auto) 2.3 TH/MM3 Monocytes # (Auto) 1.4 TH/MM3 Eosinophils # (Auto) 0.1 TH/MM3 Basophils # (Auto) 0.0 TH/MM3 CBC Comment DIFF FINAL Differential Comment Blood Urea Nitrogen 11 MG/DL Creatinine 0.95 MG/DL Random Glucose 90 MG/DL Total Protein 7.8 GM/DL Albumin 2.8 GM/DL Calcium Level 9.0 MG/DL Alkaline Phosphatase 141 U/L Aspartate Amino Transf (AST/SGOT) 11 U/L Alanine Aminotransferase (ALT/SGPT) 17 U/L Total Bilirubin 0.2 MG/DL Sodium Level 137 MEQ/L Potassium Level 4.2 MEQ/L Chloride Level 102 MEQ/L Carbon Dioxide Level 25.1 MEQ/L Anion Gap 10 MEQ/L Estimat Glomerular Filtration Rate 84 ML/MIN Lipase 152 U/L Urine Color YELLOW Urine Turbidity CLEAR Urine pH 5.0 Urine Specific [place] 1.009 Urine Protein NEG mg/dL Urine Glucose (UA) NEG mg/dL Urine Ketones NEG mg/dL Urine Occult Blood NEG Urine Nitrite NEG Urine Bilirubin NEG Urine Urobilinogen LESS THAN 2 mg/dL Urine Leukocyte Esterase NEG Urine RBC LESS THAN 1 /hpf Urine WBC 1 /hpf Microscopic Urinalysis Comment CULT NOT INDICATED MDM Medical Record Reviewed: Yes Supervised Visit with [facility]IN[facility]: No Differential Diagnosis Differential diagnosis is gastritis GERD gallbladder disease cholecystitis pancreatic disease constipation hernia ventral hernia other Narrative Course CT does not show any changes from prior CT there is a protuberance of the bladder which was seen prior as well as the fact that he has a mild hernia left side inguinal but no change no entrapment no incarceration no bowel caught his pain is epigastric it is alleviated by antacids it is not related to the CAT scan findings Diagnosis Primary Impression: GERD (gastroesophageal reflux disease) Qualified Codes: K21.9 - Gastro-esophageal reflux disease without esophagitis Patient Instructions: Gastritis (ED), General Instructions Scripts Ondansetron Odt (Zofran Odt) 4 Mg Tab 4 MG SL Q8HR Y for Nausea/Vomiting, #15 TAB 0 Refills Prov: Malcolm Mcmahon MD 08/06/17 Omeprazole (Omeprazole) 20 Mg Tab 20 MG PO DAILY, #30 TAB 0 Refills Prov: Malcolm Mcmahon MD 08/06/17 Famotidine (Pepcid) 20 Mg Tab 20 MG PO BID, #20 TAB 0 Refills Prov: Malcolm Mcmahon MD 08/06/17 Disposition: 01 DISCHARGE HOME Condition: Good Malcolm Mcmahon MD Aug 06, 2017 21:10
[2017-08-06 21:40] VITALS: BP 131/71
== END 2017-08-06 21:40 | disposition home or self-care (01) ==
LOC: NEPE 15:25
DX: K21.9 Gastro-esophageal reflux disease without esophagitis (principal); R10.30 Lower abdominal pain, unspecified; R05 Cough; K40.90 Unilateral inguinal hernia, without obstruction or gangrene, not specified as recurrent; J44.9 Chronic obstructive pulmonary disease, unspecified; F31.9 Bipolar disorder, unspecified; F43.10 Post-traumatic stress disorder, unspecified; F17.210 Nicotine dependence, cigarettes, uncomplicated; Z86.73 Personal history of transient ischemic attack (TIA), and cerebral infarction without residual deficits; Z88.5 Allergy status to narcotic agent; Z79.899 Other long term (current) drug therapy
CPT/HCPCS: 71046; 74177; 80053; 81001; 83690; 85025; 87804; 96374; 96375; 99285; J1885; Q9967